=== PATIENT | female | born 1985 | race Caucasian/White ===

== ENCOUNTER 2017-06-29 18:01 | Emergency (ER) | payer OTHER, SELFPAY ==
[2017-06-29 18:02] VITALS: BP 125/84; PULSE 88; RESP 20; TEMP 36.4; O2SAT 98; BMI 37.5
[2017-06-29 18:06] VITALS: BP 125/84; PULSE 88; RESP 20; TEMP 36.4; O2SAT 98; BMI 37.5
== END 2017-06-29 20:58 | disposition left against medical advice (07) ==
LOC: ED 18:02
PROVIDERS: PCP Family Medicine
DX: S61.211A Laceration without foreign body of left index finger without damage to nail, initial encounter (principal)
CPT/HCPCS: 99281; 99282

== ENCOUNTER → 2017-07-18 08:34 | Outpatient (CLI) | payer OTHER, SELFPAY ==
--- NOTE | 2017-07-18 | DI.CT.S_ITS ---
PROCEDURE: CT LE RT WO CON INDICATIONS: right foot arthritis/pain TECHNIQUE: Noncontrast 1-1.5 mm axial sections acquired from above the tibiotalar joint to the bottom of the calcaneus, with coronal and sagittal reformats. COMPARISON: [facility] [place], CR, XR FOOT 3+ VIEWS RIGHT, 05/15/2017, 9:43. [facility], CR, KNEE 3V LEFT, 04/13/2017, 20:10. [facility] [place], CR, XR FOOT 3+ VIEWS RIGHT, 03/13/2017, 13:23. [facility] [place], CR, XR FOOT 3+ VIEWS RIGHT, 02/07/2017, 13:49. [facility] [place], CR, XR FOOT 3 VIEWS WEIGHT BEARING RIGHT, 12/27/2016, 9:40. [facility], CR, XR FOOT 1 OR 2 VIEWS LEFT, 09/23/2016, 11:05. [facility], CR, XR FOOT 1 OR 2 VIEWS RIGHT, 11/25/2016, 8:10. [facility], CR, XR FOOT 1 OR 2 VIEWS BILATERAL, 11/04/2016, 11:00. [facility] [place], CR, XR FOOT 3+ VIEWS RIGHT, 07/11/2017, 11:18. FINDINGS: Image quality: Excellent. Bones: No acute trauma found. There is a small degree of tibiotalar joint space thinning, best seen on the lateral reformatt imaging, and again noted is a slight degree of degenerative thinning at the calcaneocuboid and talonavicular articulations. A small focus of residual fixation device from prior right medial midfoot fusion procedure remains after removal of the fixation plate and screws from that area at some point subsequent to the plain film imaging of the right foot obtained 03/13/17. Soft tissues: No inflammatory change is present. No underlying infection is suspected. IMPRESSION: A prior fixation plates nd screws removal from the first tarsal-metatarsal and second tarsal-metatarsal region of the midfoot, with one the previously identified residual screw fragment remaining in the dorsal two thirds of the base of the second metatarsal. Only a small degree of degenerative osteoarthritic change is present, over the midfoot and hindfoot. No acute trauma is seen and no evidence for underlying infection involving the soft tissue or osseous structures is found. Dictated by: Charlie Everett M.D. on 07/18/2017 at 11:16 Approved by: Charlie Everett M.D. on 07/18/2017 at 11:24
== END ==
PROVIDERS: PCP Family Medicine; Visit Provider Orthopaedic Surgery Foot and Ankle Surgery
DX: M19.071 Primary osteoarthritis, right ankle and foot (principal); M79.671 Pain in right foot
CPT/HCPCS: 73700

== ENCOUNTER 2017-11-21 08:42 | Day surgery (SDC) | payer OTHER, SELFPAY ==
[2017-11-17 09:32] VITALS: BMI 39.9
[2017-11-21] VITALS (8 sets, daily range): BP systolic 118–152; BP diastolic 68–95; PULSE 81–112; RESP 10–25; TEMP 36.2–36.8; O2SAT 92–98; BMI 40.3
[2017-11-21] MEDS: LACTATED RINGERS 1,000 ML 42 ML IV ×2 (09:12→14:13)
--- NOTE | 2017-11-21 11:41 | PM.PREOP ---
Pre-operative Note Interval Note Pre-op Check: Yes History & Physical Reviewed by Physician Changes: No H&P completed within 30 days and has changed as indicated here:: no changes
[2017-11-21] MEDS: APREPITANT 40 MG CAPSULE PO (11:59)
[2017-11-21] MEDS: SCOPOLAMINE 1 PATCH TOP (11:59)
[2017-11-21] MEDS: CEFAZOLIN 2 GM/100 ML FROZ.PIGGY IV (12:15)
--- NOTE | 2017-11-21 12:46 | SUR.OPER ---
Prone on padded OR bed, head in foam head support, gel chest rolls, gel pad under knees, blankets under lower legs, toes free of pressure, arms secured on padded arm boards at <90 degrees abduction. Safety belt at back and thigh.
[2017-11-21] MEDS: BUPIVACAINE 0.25% (PF) VIAL 30 ML INJ (13:06)
[2017-11-21] MEDS: MIDAZOLAM 2 MG/2 ML VIAL 1 MG IV ×2 (13:45→14:02)
--- NOTE | 2017-11-21 14:01 | P.OP_ITS ---
Operative Date/Time/Diagnoses Date of procedure: 11/21/17 Time of procedure: 12:45 Pre-op diagnosis: 1. Gastroc equinus of the right lower extremity ICD 10 M21.6X1 2. Morbid Obesity BMI 41 3. Dislocation of the tarsometatarsal joint, right foot ICD 10 S93.32D Post-op diagnosis: same Procedure & Clinicians Procedure: 1. Gastrocnemius recession, Annmarie procedure, right lower extremity CPT code 90943 Same procedure as scheduled: Yes Indications: The patient is a 32 year old female that had a low energy Lisfranc fracture of her right foot on 09/22/2016 she had the initial 6 week treatment of nonweightbearing but failed conservative treatment [place] surgeon. He had a staged removal of hardware 5 months later and has been maintained in a shoe with an orthotic. She also has gastroc equinus and has undergone extensive >9 mo conservative treatment with calf and Achilles stretching as well as formal physical therapy. She has been working very hard in physical therapy on her gastroc tightness but has not made progress she continues to have pain any time she gets up starts walking and feels tightness in her calf and foot pain. Recent CT scan of her right foot showed minimal degenerative changes. She has been indicated for a elective gastrocnemius recession to address her gastroc equinus contracture and leg and foot pain. Surgeon: Yoanna Martinez Click Yes if Unassisted: Yes Anesthesia Type: General and Local Operative Notes Findings: Patient was evaluated under anesthesia in the operating room with the knee flexed and the knee extended. The patient had obvious gastroc contracture of her right lower extremity with approximately 5? of equinus with the knee extended and approximately 15? of dorsiflexion with the knee flexed. After isolation and transection of the gastrocnemius fascia the contracture was greatly improved with approximately 10-15 degrees of ankle dorsiflexion with knee extension and 2.5 cm of lengthening between the transverse ends of the gastroc fascia. Closure Type: primary Specimen(s): none sent Implants & Drains: None Applied: other (Splint) Estimated Blood Loss (mL): 0 Blood products transfused: none Tourniquet time (min): 13 Procedure in detail: Patient was seen and evaluated in the preoperative area. The site of surgery was marked and consent form confirmed and re-signed. Patient was determined appropriate to proceed with the scheduled procedure and final questions were answered. Patient was then brought to the operating room. General anesthesia was administered the patient was then moved onto the operative bed and positioned in the prone position with this well-padded. A padded thigh tourniquet was operative extremity. The right lower extremity was in a pre prepped with alcohol wipe the the standard sterile chlorhexidine prep was then completed. Patient was sterilely draped in the standard fashion. A formal time-out procedure was performed confirming the patient's side and site of surgery and administration of appropriate preoperative antibiotics. All were in agreement. The Esmarch was then utilized for exsanguination and the tourniquet elevated on the thigh to 300 mm of mercury and stayed there for 13 min. Right gastroc recession: Attention was directed to the medial aspect of the right leg. Ruler was used and approximately 14 cm proximal from the proximal aspect of the calcaneus was marked on the leg this was just distal to the muscle bulk of the calf. Approximately 3 cm small incision was marked out over the skin just medial to the midline. Scalpel was used to incise the skin and subcutaneous tissue. Scissor dissection was taken down to the level of the fascia which was then divided longitudinally with a 15 blade. Care was taken to protect the neurovascular structures. The paratenon was entered and blunt finger dissection was used to isolate the gastroc from the soleus. Gastroc fascia was then transected selectively the complete release medial to lateral. A plantaris muscle was also identified medially and this was transected at the same level. Gastroc release provided approximately 2.5 cm of lengthening resulting in a greater than 10? of ankle dorsiflexion markedly improving the contracture. I was very happy with this release and mobility. The tourniquet was released, hemostasis was then achieved and the incision was then irrigated with copious normal saline. The deep tissue was closed with 2 O Vicryl suture followed by subcutaneous closure with 4 0 Monocryl and skin closure with 3 O nylon. A sterile Xeroform dressing was placed as well as 4x4s Webril and Jed wrap in a posterior splint. The patient was then awoken from anesthesia. The patient tolerated the procedure well and there were no known complications from the procedure she was transferred to the PACU in good condition. All counts were correct. Complications: none Condition: stable Disposition: PACU Plan for aftercare: The patient will be partial weight-bearing or toe-touch weight-bearing with crutches in a posterior splint or boot. She will keep her dressing clean dry and intact until follow-up. 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 She will elevate above the heart level to limit swelling and pain.
--- NOTE | 2017-11-21 14:45 | SUR.PHASEII ---
dcd iv in phase 2. cath intact. site w/o reddness or swelling.
== END 2017-11-21 14:47 | disposition home or self-care (01) ==
PROVIDERS: PCP Family Medicine; Visit Provider Orthopaedic Surgery Foot and Ankle Surgery
PROC: (CPT 27687; principal; 2017-11-21 10:15)
DX: M21.6X1 Other acquired deformities of right foot (principal); S93.324D Dislocation of tarsometatarsal joint of right foot, subsequent encounter; E66.01 Morbid (severe) obesity due to excess calories; Z68.42 Body mass index [BMI] 45.0-49.9, adult
CPT/HCPCS: 27687; J0330; J0690; J1100; J2250; J2405; J2704; J3010; J8501

== ENCOUNTER → 2017-12-11 18:58 | Outpatient (CLI) | payer OTHER, SELFPAY ==
--- NOTE | 2017-12-11 | DI.MRI.S_ITS ---
PROCEDURE: MR LOWER LEG RT WO CON INDICATIONS: GASTROCENIMUS EQUINUS OF RIGHT LOWER EXTERMITY TECHNIQUE: Noncontrast coronal and sagittal T1 spin echo and STIR; axial T1 spin echo and T2 fast spin echo with fat saturation through the right lower leg. COMPARISON: None. FINDINGS: Image quality: Excellent. Bones: The visualized bone marrow demonstrates normal signal on all sequences. The overlying cortex appears intact. No fractures lines or intra-osseous lesions. Soft tissues: There is edema and fluid signal involving musculotendinous junction of distal gastrocnemius muscle suggestive of low-grade partial-thickness tear in this area. The mild edema involving the superficial portion of the lateral soleus muscle in this area is also noted suggestive of low-grade muscle strain/partial thickness tear. No other muscle or tendon signal abnormality. No significant muscle atrophy. No soft tissue masses are present. IMPRESSION: 1. Findings consistent with muscle strain/low-grade partial-thickness tear involving distal gastrocnemius muscle near musculotendinous junction. Low-grade strain and partial-thickness tear is also seen involving superficial and lateral portion of the adjacent soleus muscle. No full-thickness muscle or tendon rupture. 2. No marrow signal abnormality. Dictated by: Rigo Daigle M.D. on 12/12/2017 at 13:57 Approved by: Rigo Daigle M.D. on 12/12/2017 at 14:02
== END ==
PROVIDERS: PCP Family Medicine; Visit Provider Physician Assistant
DX: M21.6X9 Other acquired deformities of unspecified foot (principal)
CPT/HCPCS: 73718

== ENCOUNTER 2018-02-19 06:05 | Day surgery (SDC) | payer OTHER, SELFPAY ==
[2018-02-18 09:15] VITALS: BMI 41.0
[2018-02-19] VITALS (12 sets, daily range): BP systolic 100–132; BP diastolic 56–80; PULSE 81–110; RESP 14–92; TEMP 36.4–37.2; O2SAT 18–95; BMI 41.0
--- NOTE | 2018-02-19 | DI.RAD.S_ITS ---
PROCEDURE: XR FOOT RT MIN 3V INDICATIONS: LIS FRANC REPAIR TECHNIQUE: 3 views of the foot were acquired. COMPARISON: [facility] [place], CR, XR FOOT 3 VIEWS WEIGHT BEARING RIGHT, 02/12/2018, 8:41. FINDINGS: Bones: Expected bony alignment status post arthrodesis of the first and second tarsometatarsal joints with fixation plate and screws in expected positions. Soft tissues: No tibiotalar joint effusion. Achilles tendon appears normal. IMPRESSION: Expected alignment status post arthrodesis of the first and second tarsometatarsal joints. Dictated by: Kal Stephenson [facility] Interpreted: Rigo Daigle MD on 02/19/2018 at 11:34 Approved by: Rigo Daigle M.D. on 02/19/2018 at 17:39
--- NOTE | 2018-02-19 07:21 | PM.PREOP ---
Pre-operative Note Interval Note Pre-op Check: Yes History & Physical Reviewed by Physician and Yes Exam Performed Changes: No
--- NOTE | 2018-02-19 07:36 | P.OP_ITS ---
Operative Date/Time/Diagnoses Date of procedure: 02/19/18 Time of procedure: 08:15 Pre-op diagnosis: Dislocation tarsaometatarsal joint right foot ICD 10 S93.324 Chronic foot pain status post Lisfranc fracture dislocation Post-op diagnosis: same Procedure & Clinicians Procedure: 1. Arthrodesis mid foot, 1st and 2nd tarsometatarsal joints, right: Fusion tarsometatarsal joint 2 or more CPT code 53562 Modifier 79 and modifier 22 for complexity, altered surgical bed, revision procedure Same procedure as scheduled: Yes Indications: Patient is a 32-year-old female who had a history of a right low energy Lisfranc in August of 2016. The patient initially underwent 6 weeks of non operative treatment out of state and then underwent open reduction internal fixation by another physician in [place] in October of 2016. The patient had later staged hardware removal approximately 6 months postop. The patient had continued midfoot pain. She got temporary relief with steroid injections and had increased relief with a gastroc lengthening for her equinus contracture. But due to persistent midfoot pain despite extensive conservative management and orthotics supportive shoes injections and anti-inflammatories the patient has been indicated for midfoot fusion. We discussed the rationale for, risks of, prolonged recovery associated with surgery. The patient expressed extending of all issues including risks of infection, nerve damage, wound dehiscence, nonunion, malunion, symptomatic hardware, over correction or under correction of the deformity, implant complete relief of pain, inability to return to the patient's desired level of function, generalized dissatisfaction with the surgical procedure and outcome, DVT, PE, cardiac complications and . Informed consent was signed in the office. The patient understands the healing bones and soft tissues will take approximately 3 months for full recovery will require 6-9 months. The patient also understands the critical elevate the extremity for 4th the 1st 3 weeks after surgery to control swelling and pain. The patient was counseled and await will be allowed on the surgical leg for approximately 8-12 weeks until the patient is instructed that it is safe to initiate weight-bearing. Surgeon: Yoanna Martinez Click Yes if Unassisted: Yes Anesthesia Type: General Operative Notes Closure Type: primary Specimen(s): none sent Implants & Drains: Arthritis 3.5 Lapidus plate and screws 4.0 cannulated lag screw Arthrex 3.0 T-plate and screws 5 cc demineralized cortical fibers allograft bone Applied: other (splint) Estimated Blood Loss (mL): 15 Blood products transfused: none Tourniquet time (min): 116 Procedure in detail: Patient was seen in the preoperative area and her site of surgery was marked and informed consent confirmed. Patient was brought to the operating room by the anesthesia team placed supine on the operative table. A sciatic block for postop pain control was performed by the anesthesia team in the operating room. Following this the position was then placed supine general anesthesia was administered. All bony prominences were padded. There is a well -padded thigh tourniquet placed on the right lower extremity. Right lower extremities prepped and draped in the standard sterile fashion formal time-out performed seizure was performed confirming the patient's side and site of surgery and administration of appropriate preoperative antibiotics. All were in agreement. Implants were available in the room. An Esmarch bandage was utilized to exsanguinate the extremity and the tourniquet was raised on the thigh to 300 mm of mercury and stayed there for 116 min. Attention was turned to the right foot the patient's previous surgical incisions were a medial approach the 1st TMT and a dorsal approach centered over the lateral 2nd metatarsal. Both incisions were reopened. Careful dissection was taken down through the subcutaneous tissue down to the level of the bone over the dorsum of the foot. The neurovascular bundle was retracted medially and subperiosteal dissection was taken over the 2nd tarsometatarsal joint. There was copious scar tissue in this area in the soft tissues were quite scarred down and not easily mobile. With careful elevation the 2nd TMT joint was exposed K-wire distractor was placed the 2nd TMT joint was evaluated was found to have arthritic changes. Osteotomes were then utilized to remove the remaining cartilage down to the subchondral bone. This was then prepped further with the bur and 2 0 drill to get down to good bleeding cancellous bone surfaces. Attention was then turned to the 1st TMT joint. This was exposed through the pre-existing medial and incision. Again the subcutaneous tissues were very scarred in. Careful dissection was taken to avoid injury to the tibialis anterior insertion. Approximately 10% of this was elevated at the level of the TMT joint. The 1st TMT joint was exposed and the K- wire retractor was used again here. the osteotomes from the [employer] joint prep tray were used to remove the remaining cartilage down to subchondral bone. Again the pituitary rongeur was used to clear away the debris and a bur was used to remove the lateral prominence of the medial cuneiform. a 2.0 drill was used to finish the cancellous surface preparation. 5 cc of cortical fiber allograft was then placed into the 1st and 2nd TMT joints and the joints were provisionally pinned. Reduction was checked on the x -ray confirming satisfactory positioning. Next a lag screws placed across the 1st TMT joint this was done utilizing the 440 cannulated screw system and provided good fixation across the joint. Next a dorsomedial Lapidus plate from the Arthrex set was positioned along the 1st TMT joint. This was secured distally and proximally and placed in neutralization fashion. Attention was then returned to the 2nd metatarsal where a dorsal bridge, compression plate technique was utilized with the 3 0 T-plate which was secured proximally with locking screws. The nonlocking eccentric screw was placed into the compression hole distally for joint compression. The remaining locking screw was placed distally. The fixation was tested and was stable intraoperatively and then evaluated with final fluoroscopic images in the AP oblique and lateral views confirming appropriate reduction and hardware placement. The tourniquet was released and hemostasis achieved. The wound was irrigated and closed in a layered fashion with 2 Vicryl deep subcutaneous tissues were closed with 4 0 Monocryl in the skin was closed with 4 0 nylon and 3 O nylon. Sterile dressing was placed with Xeroform gauze Webril bulky Clifford dressing and a posterior splint. Patient was then awoken from anesthesia and taken to the PACU in good condition. All counts were correct. There no immediate complications to this procedure. Complications: none Condition: stable Disposition: PACU Plan for aftercare: Patient will be nonweightbearing she will elevate her lower extremity strictly above heart level for the next 2-3 weeks. She will follow up in clinic. She will maintain nonweightbearing for a minimum of 8 weeks. She will start taking aspirin 325 mg daily on postop day 1 for DVT prophylaxis.
[2018-02-19] MEDS: MIDAZOLAM 2 MG/2 ML VIAL IV (07:42)
[2018-02-19] MEDS: LACTATED RINGERS 1,000 ML 42 ML IV ×2 (08:05→10:19)
[2018-02-19] MEDS: CEFAZOLIN 2 GM/100 ML FROZ.PIGGY IV (08:10)
--- NOTE | 2018-02-19 08:32 | SUR.OPER ---
Supine on padded OR bed, head on pillow, arms secured on padded arm boards at <90 degrees abduction, legs uncrossed, right leg draped free, safety belt at thigh, tape over blanket over lower left leg
[2018-02-19] MEDS: BUPIVACAINE 0.5% (PF) VIAL 30 ML INJ (08:42)
--- NOTE | 2018-02-19 11:15 | SUR.PHASEI ---
Due to surgical dressing situation usual neurovascular assessment not completed.
[2018-02-19] MEDS: MEPERIDINE 25 MG/ML SYRINGE IV ×2 (11:30→11:37)
--- NOTE | 2018-02-19 14:15 | SUR.PHASEII ---
[place] at Pharmacy filled scripts.
== END 2018-02-19 13:10 | disposition home or self-care (01) ==
PROVIDERS: PCP Family Medicine; Visit Provider Orthopaedic Surgery Foot and Ankle Surgery
PROC: (CPT 28730; principal; 2018-02-19 07:45)
DX: S93.324A Dislocation of tarsometatarsal joint of right foot, initial encounter (principal); S86.111A Strain of other muscle(s) and tendon(s) of posterior muscle group at lower leg level, right leg, initial encounter; M21.6X1 Other acquired deformities of right foot; G89.18 Other acute postprocedural pain
CPT/HCPCS: 28730; 64415; 64445; 73630; 76001; J0360; J0690; J1100; J2175; J2250; J2405; J2704; J3010

== ENCOUNTER → 2018-05-07 08:59 | Outpatient (CLI) | payer OTHER, SELFPAY ==
--- NOTE | 2018-05-07 | DI.US.S_ITS ---
PROCEDURE: US PERIPH VENOUS LOW EXTREM RT INDICATIONS: RIGHT LEG PAIN AND SWELLING TECHNIQUE: Real-time imaging, as well as color and pulse Doppler interrogation, were performed of the lower extremity deep veins from the inguinal ligament to the popliteal fossa. COMPARISON: None. FINDINGS: The common femoral, femoral and popliteal veins are normally compressible, and free of intraluminal thrombus. Color and pulse Doppler demonstrate normal phasic intraluminal flow. There is normal augmentation response to distal compression maneuver. IMPRESSION: No deep venous thrombosis. Dictated by: Dustin Arias M.D. on 05/07/2018 at 10:04 Approved by: Dustin Arias M.D. on 05/07/2018 at 10:09
== END ==
PROVIDERS: PCP Family Medicine; Visit Provider Orthopaedic Surgery Foot and Ankle Surgery
DX: M79.604 Pain in right leg (principal)
CPT/HCPCS: 93971

== ENCOUNTER 2018-06-02 20:48 | Emergency (ER) | payer OTHER, SELFPAY ==
[2018-06-02 21:18] VITALS: BP 151/90; PULSE 85; RESP 20; TEMP 36.9; O2SAT 99; BMI 37.5
--- NOTE | 2018-06-02 21:21 | DI.RAD.S_ITS ---
PROCEDURE: XR HAND LT MIN 3V INDICATIONS: fall TECHNIQUE: 3 views of the hand(s) acquired. COMPARISON: None. FINDINGS: Bones: No fractures or dislocations. Carpal bones are normally aligned. No suspicious bony lesions. Soft tissues: No suspicious soft tissue calcifications. IMPRESSION: No fracture. No osseous lesion. If there are persistent symptoms or clinical suspicion for pathology, then repeat radiographs or advanced imaging (CT, MRI or bone scan) should be considered for further evaluation. Dictated by: Katerina Vance MD, PhD on 06/02/2018 at 21:58 Approved by: Katerina Vance MD, PhD on 06/02/2018 at 21:59
[2018-06-02 23:49] VITALS: BP 120/96; PULSE 90; RESP 16; O2SAT 98
--- NOTE | 2018-06-03 07:15 | ED_ITS ---
HPI - Extremity Injury (Upper) General Chief Complaint: Extremity Injury, Upper Stated Complaint: LT HAND INJURY Time Seen by Provider: 06/02/18 22:27 Source: patient Mode of arrival: ambulatory Limitations: no limitations History of Present Illness HPI narrative: 32-year-old nonsmoking female with history of hypertension and asthma presents with left hand pain. She was walking and tripped and fell on her outstretched left hand. She denies tenderness over the dorsum of her left thumb. She has full range of motion and denies any numbness or tingling. She denies any pain in her forearm, elbow or shoulder MD complaint: injury to: left Onset (ago): minute(s) Other Extremity Injury: Left: fingers Other injuries: none Handedness: right Place: home Severity: mild Severity scale (1-10): 2 Relieving factors: rest Exacerbating factors: movement of extremity Context: direct blow Related Data Home Medications Medication Instructions Recorded Confirmed atenolol 50 mg PO BID #0 03/24/17 02/18/18 sertraline [Zoloft] 100 mg PO DIRECTED #0 03/24/17 02/19/18 gabapentin 300 mg PO BEDTIME 11/14/17 02/18/18 acetaminophen [Tylenol Extra 1,000 mg PO Q6H PRN 11/21/17 11/21/17 Strength] albuterol sulfate 2 puff INHALATION Q4-6H PRN 11/21/17 11/21/17 ibuprofen 800 mg PO TID PRN 02/18/18 02/18/18 Previous Rx's Medication Instructions Recorded diazepam [Valium] 5 mg PO Q8H PRN #10 tab 11/21/17 ondansetron [Zofran ODT] 4 mg PO Q8H PRN #5 tab 11/21/17 oxycodone 5 mg PO Q4-6H PRN #10 tab 11/21/17 diazepam [Valium] 5 mg PO BID-TID PRN #20 tab 02/19/18 ondansetron HCl [Zofran] 4 mg PO BID-TID PRN #10 tab 02/19/18 oxycodone-acetaminophen [Percocet] 2 tab PO Q4-6H PRN #42 tab 02/19/18 Allergies Allergy/AdvReac Type Severity Reaction Status Date / Time adhesive tape Allergy Severe Break out Verified 02/19/18 06:48 really bad erythromycin base Allergy Intermediate ITCHY/HIVES Verified 02/19/18 06:48 [From ERYTHROCIN] oxycodone [From PERCOCET] Allergy Intermediate Itching, Verified 02/19/18 06:48 vomiting hydrocodone [HYDROCODONE] AdvReac Severe VOMITING Verified 02/19/18 06:48 oseltamivir [From TAMIFLU] AdvReac Intermediate DELUSIONS Verified 02/19/18 06:48 Review of Systems Constitutional Denies chills, Denies fever(s), Denies lethargy and Denies weakness Eyes Denies change in vision, Denies eye discharge, Denies irritation and Denies loss of vision ENT Ears, Nose, Mouth, and Throat: Denies change in voice, Denies neck pain and Denies sore throat Cardiovascular Denies chest pain, Denies irregular heart rhythm, Denies lightheadedness, Denies palpitations, Denies dyspnea, Denies dyspnea on exertion and Denies orthopnea Respiratory Denies cough, Denies dyspnea, Denies dyspnea on exertion and Denies wheezing Gastrointestinal Gastrointestinal: Denies abdominal pain, Denies change in bowel habits, Denies diarrhea, Denies nausea and Denies vomiting Genitourinary Denies hematuria, Denies flank pain, Denies urinary incontinence and Denies urinary urgency Musculoskeletal Denies neck pain Integumentary/Breasts Denies pruritus, Denies erythema, Denies rash and Denies wounds Neurologic Denies confusion, Denies loss of vision and Denies weakness Psychiatric Denies anxiety, Denies confusion, Denies depression, Denies homicidal ideation and Denies suicidal ideation Endocrine Denies palpitations Hematologic/Lymphatic Denies easy bruising Allergic/Immunologic Denies wheezing [facility] Medical History (Updated 06/02/18 @ 23:37 by Robe Palma DO) Asthma (Acute) Closed nondisplaced fracture of second metatarsal bone of right foot with routine healing (Acute) Depression (Acute) Dermatitis (Acute) Dislocation of tarsometatarsal joint of foot (Acute) Gastrocnemius equinus of right lower extremity (Acute) History of migraine headaches (Acute) History of pancreatitis (Acute) History of depression (Acute) Kidney stones (Acute) 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) Obesity (Acute) Surgical History (Updated 02/18/18 @ 09:24 by Samantha Desai RN) H/O sinus surgery (Acute) H/O: (Acute) History of ERCP (Acute) History of cholecystectomy (Acute) History of open reduction and internal fixation (ORIF) procedure (Acute) Social History household members: spouse and children Smoking Status: Never smoker alcohol intake: current Social History household members: spouse and children Smoking Status: Never smoker alcohol intake: current Exam Narrative Exam Narrative: GEN: AOx3 and in mild distress EYES: Pupils are equal, round, and reactive to light and accommodation. Extraoccular muscles are intact bilaterally. There is no subconjunctival hemorrhage or exudate. CHEST: Lungs are clear to auscultation bilaterally and free of wheezes, rales, or rhonchi. Heart rate is regular rhythm, there are no murmurs, clicks, rubs, or gallops. There is no chest wall tenderness. ABD: Abdomen is soft and nontender. There is no guarding or rebound. Bowel sounds are normal in all 4 quadrants. There is no mass or organomegaly. EXT: Full but painful range of motion of the left hand there is some bruising on the volar surface of the left thumb but full range of motion. Minimal tenderness in the anatomic snuffbox and no change in pain with axial loading however patient was placed in thumb spica nonetheless SKIN: Warm, pink, and dry. No erythema or rash Initial Vital Signs Initial Vital Signs: Vital Signs Temperature 98.5 F 06/02/18 21:18 Pulse Rate 85 06/02/18 21:18 Respiratory Rate 20 06/02/18 21:18 Blood Pressure 151/90 H 06/02/18 21:18 Pulse Oximetry 99 06/02/18 21:18 Procedures Orthopedic Splinting/Casting Injury #1: Side: left Upper Extremity Injury Location: hand Upper Extremity Immobilizer: thumb spica Post splinting neuro exam: intact Post splinting vascular exam: intact Placed by: Nursing Course Vital Signs - 8 hr 06/02/18 23:49 Pulse Rate 90 Respiratory Rate 16 Blood Pressure 120/96 H Pulse Oximetry 98 Discharge Plan Departure Patient Disposition: Home Clinical Impression: Contusion of left thumb Qualifiers: Encounter type: initial encounter Damage to nail status: without damage Qualified Code(s): S60.012A - Contusion of left thumb without damage to nail, initial encounter Discharge Date/Time: 06/02/18 23:45 Interventions: ED Discharge Assessment Last Done: 06/02/18 23:49 Instructions: DI for Contusion Activity Restrictions/Additional Instructions: *You have been diagnosed with [ left thumb contusion] *What to do: *Take medications as directed *Follow up with your primary care provider in 2-3 days, call for an appointment. Let them know you were seen in the Emergency Department and that we ask that you be seen in follow up *Return to ER if you should have any new, worsening or concerning symptoms Prescriptions: No Action sertraline [Zoloft] 100 MG tablet 100 mg PO DIRECTED Qty: 0 RF: 0 atenolol 50 MG tablet 50 mg PO BID Qty: 0 RF: 0 ibuprofen 200 mg Tablet 800 mg PO TID PRN (Reason: pain) RF: 0 ondansetron HCl [Zofran] 4 mg tablet 4 mg PO BID-TID PRN (Reason: nausea and vomiting) Qty: 10 RF: 1 oxycodone-acetaminophen [Percocet] 5-325 mg tablet 2 tab PO Q4-6H PRN (Reason: pain) Qty: 42 RF: 0 diazepam [Valium] 5 mg tablet 5 mg PO BID-TID PRN (Reason: spasms) Qty: 20 RF: 1 gabapentin 300 mg Capsule 300 mg PO BEDTIME RF: 0 acetaminophen [Tylenol Extra Strength] 500 mg Tablet 1,000 mg PO Q6H PRN (Reason: Pain (Scale Score 1-3)) RF: 0 albuterol sulfate 90 mcg/actuation Hfa Aerosol Inhaler 2 puff INHALATION Q4-6H PRN (Reason: Dyspnea) RF: 0 diazepam [Valium] 5 mg tablet 5 mg PO Q8H PRN (Reason: spasms) Qty: 10 RF: 1 ondansetron [Zofran ODT] 4 mg tablet,disintegrating 4 mg PO Q8H PRN (Reason: nausea and vomiting) Qty: 5 RF: 1 oxycodone 5 mg tablet 5 mg PO Q4-6H PRN (Reason: pain) Qty: 10 RF: 0 Referrals: Chu Kaplan DO [Primary Care Provider] -
== END 2018-06-02 23:45 | disposition home or self-care (01) ==
PROVIDERS: Emergency Provider Emergency Medicine; Family Provider Family Medicine; PCP Family Medicine
DX: S60.012A Contusion of left thumb without damage to nail, initial encounter (principal); W19.XXXA Unspecified fall, initial encounter
CPT/HCPCS: 29280; 73130; 99282; 99283

== ENCOUNTER → 2018-08-21 09:32 | Outpatient (CLI) | payer OTHER, SELFPAY ==
--- NOTE | 2018-08-21 | DI.CT.S_ITS ---
PROCEDURE: CT SINUS SCREEN WO CON INDICATIONS: fracture of 2nd metatarsal bone chronic sinusitis TECHNIQUE: Noncontrast 3.0 mm axial images acquired from the frontal sinuses to the mid-sella, with coronal and sagittal reformats. For radiation dose reduction, the following was used: automated exposure control, adjustment of mA and/or kV according to patient size. COMPARISON: None. FINDINGS: Image quality: Excellent. Maxillary Sinuses: No bony remodeling or destruction. Sinuses are clear except for a moderate sized mucous retention cyst at the anterolateral right maxillary sinus measuring up to 2.1 cm in maximal dimension. Ethmoid Air Cells: No bony remodeling or destruction. Sinuses are clear. Sphenoid Sinuses: No bony remodeling or destruction. Sinuses are clear except for slight left lateral mucosal thickening at the posterior sphenoid sinus, without air fluid level. Frontal Sinuses: No bony remodeling or destruction. Sinuses are clear. Ostiomeatal Complexes: Ostiomeatal complexes are patent. No Gigi cells. Miscellaneous: Visualized intra-orbital contents are normal. No dexter bullosa or paradoxical turbinate curvature. No nasal septal deviation. IMPRESSION: No sign of active sinusitis. Mucous retention cyst right maxillary sinus is not obstructive, minimal mucosal thickening appears chronic and possibly also a mucous retention cyst at the left margin of the sphenoid sinus. Dictated by: Charlie Everett M.D. on 08/21/2018 at 10:10 Approved by: Charlie Everett M.D. on 08/21/2018 at 10:12
--- NOTE | 2018-08-21 09:55 | DI.CT.S_ITS ---
PROCEDURE: CT LE RT WO CON INDICATIONS: fracture of 2nd metatarsal bone chronic sinusitis TECHNIQUE: Noncontrast 1-1.5 mm axial sections acquired from above the tibiotalar joint to the bottom of the calcaneus, with coronal and sagittal reformats. COMPARISON: [facility], CT, CT LE RT WO CON, 07/18/2017, 8:44. FINDINGS: Image quality: Excellent. Bones: Again noted is prior fusion of first TMT joint, second TMT joint, and fusion of medial and middle cuneiforms. Long fixation screw is seen traversing first TMT joint and naviculocuneiform joint. No gross hardware loosening or failure is identified. There is near complete bony union at first and second TMT joints. Pseudoarthrosis between first and second metatarsal bases are noted no bony union is seen at naviculocuneiform joint. No acute fracture or dislocation. No suspicious intraosseous lesion. Small ill-defined calcifications and cortical irregularity involving the distal and plantar aspect of lateral cuneiform is seen consistent with old injury in this area. Soft tissues: Plantar aponeurosis is intact. Extensor, flexor and peroneus tendons are grossly intact. Ankle mortise is congruent. IMPRESSION: 1. Prior fusion of first TMT joint, second TMT joint and medial and middle cuneiforms. Near-complete bony union at first and second TMT joints are seen. No significant bony union is seen at the articulation between the medial and middle cuneiforms. 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 Suggestion of old fracture involving plantar and distal portion of lateral cuneiform with well-corticated small bony fragments. No acute fracture or dislocation. 2. No gross soft tissue abnormality is seen in right foot. Dictated by: Rigo Daigle M.D. on 08/21/2018 at 10:25 Approved by: Rigo Daigle M.D. on 08/21/2018 at 12:51
== END ==
PROVIDERS: Family Provider Family Medicine; PCP Family Medicine; Visit Provider Otolaryngology
DX: S92.324D Nondisplaced fracture of second metatarsal bone, right foot, subsequent encounter for fracture with routine healing (principal); J34.89 Other specified disorders of nose and nasal sinuses; J32.8 Other chronic sinusitis; M27.40 Unspecified cyst of jaw
CPT/HCPCS: 70486; 73700

== ENCOUNTER → 2018-08-25 19:51 | Outpatient (CLI) | payer OTHER, SELFPAY | PROVIDERS: Family Provider Family Medicine; PCP Family Medicine; Visit Provider Physician Assistant | DX: L97.519 Non-pressure chronic ulcer of other part of right foot with unspecified severity (principal) | CPT/HCPCS: 87070; 87075; 87077; 87147; 87186; 87205 ==

== ENCOUNTER 2018-08-30 16:28 | Emergency (ER) | payer OTHER, SELFPAY ==
[2018-08-30 16:47] VITALS: BP 133/84; PULSE 98; RESP 16; O2SAT 99; BMI 36.8
--- NOTE | 2018-08-30 18:50 | ED.LOWEXIN ---
HPI - Extremity Injury (Lower) General Chief Complaint: Extremity Injury, Lower Stated Complaint: states staph infection in Right foot 2nd toe Time Seen by Provider: 08/30/18 18:09 Source: patient Mode of arrival: ambulatory Limitations: no limitations History of Present Illness HPI Narrative: Patient is a 33-year-old female who was seen in the walk-in clinic several days ago after sustaining an injury to her 2nd toe on the right foot. Patient does have some neuropathy in this foot secondary to a prior injury. She was placed on Keflex. There was a wound culture obtained. She returns today because she has more pain in that foot is also having some chills. Was told that if these develop she should come to the emergency department for further evaluation. She states she is still continuing to take her antibiotics and has several days left on this. Related Data Home Medications Medication Instructions Recorded Confirmed atenolol 50 mg PO BID #0 03/24/17 08/25/18 sertraline [Zoloft] 100 mg PO DIRECTED #0 03/24/17 08/25/18 gabapentin 300 mg PO BEDTIME 11/14/17 08/25/18 acetaminophen [Tylenol Extra 1,000 mg PO Q6H PRN 11/21/17 08/25/18 Strength] albuterol sulfate 2 puff INHALATION Q4-6H PRN 11/21/17 08/25/18 ibuprofen 800 mg PO TID PRN 02/18/18 08/25/18 Previous Rx's Medication Instructions Recorded diazepam [Valium] 5 mg PO Q8H PRN #10 tab 11/21/17 ondansetron [Zofran ODT] 4 mg PO Q8H PRN #5 tab 11/21/17 oxycodone 5 mg PO Q4-6H PRN #10 tab 11/21/17 diazepam [Valium] 5 mg PO BID-TID PRN #20 tab 02/19/18 ondansetron HCl [Zofran] 4 mg PO BID-TID PRN #10 tab 02/19/18 oxycodone-acetaminophen [Percocet] 2 tab PO Q4-6H PRN #42 tab 02/19/18 cephalexin 500 mg capsule 500 mg PO BID 10 Days #20 cap 08/25/18 Allergies Allergy/AdvReac Type Severity Reaction Status Date / Time adhesive tape Allergy Severe Break out Verified 08/30/18 16:47 really bad erythromycin base Allergy Intermediate ITCHY/HIVES Verified 08/30/18 16:47 [From ERYTHROCIN] oxycodone [From PERCOCET] Allergy Intermediate Itching, Verified 08/30/18 16:47 vomiting hydrocodone [HYDROCODONE] AdvReac Severe VOMITING Verified 08/30/18 16:47 oseltamivir [From TAMIFLU] AdvReac Intermediate DELUSIONS Verified 08/30/18 16:47 Review of Systems Constitutional Reports chills and Reports fever(s) Cardiovascular Denies dyspnea Respiratory Denies dyspnea Musculoskeletal Denies tingling Integumentary/Breasts Denies rash and Reports sores (Right 2nd toe) Neurologic Reports sensory deficit (Right foot) and Denies tingling Hematologic/Lymphatic Denies easy bleeding and Denies easy bruising [facility] Medical History Asthma (Acute) Closed nondisplaced fracture of second metatarsal bone of right foot with routine healing (Acute) Depression (Acute) Dermatitis (Acute) Dislocation of tarsometatarsal joint of foot (Acute) Gastrocnemius equinus of right lower extremity (Acute) History of migraine headaches (Acute) History of pancreatitis (Acute) History of depression (Acute) Kidney stones (Acute) 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) Obesity (Acute) Surgical History (Updated 02/18/18 @ 09:24 by Samantha Desai RN) H/O sinus surgery (Acute) H/O: (Acute) History of ERCP (Acute) History of cholecystectomy (Acute) History of open reduction and internal fixation (ORIF) procedure (Acute) Social History household members: spouse and children Smoking Status: Never smoker alcohol intake: current Social History household members: spouse and children Smoking Status: Never smoker alcohol intake: current Exam Initial Vital Signs Initial Vital Signs: Vital Signs Pulse Rate 98 H 08/30/18 16:47 Respiratory Rate 16 08/30/18 16:47 Blood Pressure 133/84 08/30/18 16:47 Pulse Oximetry 99 08/30/18 16:47 Const General: cooperative, healthy appearing, comfortable, well developed and well groomed Orientation: alert, awake and oriented x3 Resp Effort & Inspection: normal respiratory effort Cardio Rate: regular rate Pulses: dorsalis pedis present on the right Skin Other: Very small healing skin ulcer on the pad of the 2nd toe of the right foot. No surrounding erythema. Neuro General: alert, awake and oriented x3 Cognition: normal cognition Speech: speech normal Gait: normal gait Extrem Other: Well-healed surgical scars on the dorsum of the right foot. Course Vital Signs - 8 hr 08/30/18 16:47 Pulse Rate 98 H Respiratory Rate 16 Blood Pressure 133/84 Pulse Oximetry 99 MDM - Extremity Injury (Lower) MDM Narrative Medical decision making narrative: Reviewed patient's culture from the other day shows a pansensitive Staph aureus. She has no redness or cellulitis around the area of her right toe. Low suspicion for worsening infection. She does have neuropathy in this foot. Informed her that she needed to contact her foot and ankle specialist she already has a relationship with and also her primary provider for follow-up. Will not change any antibiotics today. She was given return precautions. Informed to continue to take her antibiotics. She expressed understanding and agreement with plan. Discharge Plan Departure Patient Disposition: Home Clinical Impression: Infection of toe Discharge Date/Time: 08/30/18 19:05 Interventions: ED Discharge Assessment Last Done: 08/30/18 19:05 Instructions: How to Prevent Pressure Ulcers Activity Restrictions/Additional Instructions: continue your antibiotics that you are currently on. tomorrow contact your ortho provider and your primary care provider to establish a follow up appointment. Return to the ER for any new or worsening symptoms. Prescriptions: No Action cephalexin 500 mg capsule 500 mg PO BID 10 Days Qty: 20 RF: 0 sertraline [Zoloft] 100 MG tablet 100 mg PO DIRECTED Qty: 0 RF: 0 atenolol 50 MG tablet 50 mg PO BID Qty: 0 RF: 0 ibuprofen 200 mg Tablet 800 mg PO TID PRN (Reason: pain) RF: 0 ondansetron HCl [Zofran] 4 mg tablet 4 mg PO BID-TID PRN (Reason: nausea and vomiting) Qty: 10 RF: 1 oxycodone-acetaminophen [Percocet] 5-325 mg tablet 2 tab PO Q4-6H PRN (Reason: pain) Qty: 42 RF: 0 diazepam [Valium] 5 mg tablet 5 mg PO BID-TID PRN (Reason: spasms) Qty: 20 RF: 1 gabapentin 300 mg Capsule 300 mg PO BEDTIME RF: 0 acetaminophen [Tylenol Extra Strength] 500 mg Tablet 1,000 mg PO Q6H PRN (Reason: Pain (Scale Score 1-3)) RF: 0 albuterol sulfate 90 mcg/actuation Hfa Aerosol Inhaler 2 puff INHALATION Q4-6H PRN (Reason: Dyspnea) RF: 0 diazepam [Valium] 5 mg tablet 5 mg PO Q8H PRN (Reason: spasms) Qty: 10 RF: 1 ondansetron [Zofran ODT] 4 mg tablet,disintegrating 4 mg PO Q8H PRN (Reason: nausea and vomiting) Qty: 5 RF: 1 oxycodone 5 mg tablet 5 mg PO Q4-6H PRN (Reason: pain) Qty: 10 RF: 0 Referrals: Chu Kaplan DO [Primary Care Provider] -
== END 2018-08-30 19:05 | disposition home or self-care (01) ==
PROVIDERS: Emergency Provider Emergency Medicine; PCP Family Medicine
DX: L08.9 Local infection of the skin and subcutaneous tissue, unspecified (principal)
CPT/HCPCS: 99282

== ENCOUNTER → 2019-01-07 08:45 | Outpatient (CLI) | payer OTHER, SELFPAY ==
--- NOTE | 2019-01-07 | DI.US.S_ITS ---
PROCEDURE: US PERIP VENOUS LOW EXTREM RT INDICATIONS: PAIN IN RIGHT LEG TECHNIQUE: Real-time imaging, as well as color and pulse Doppler interrogation, were performed of the lower extremity deep veins from the inguinal ligament to the popliteal fossa. COMPARISON: [facility], , [facility] VENOUS LOW EXTREM RT, 05/07/2018, 9:11. FINDINGS: The common femoral, femoral and popliteal veins are normally compressible, and free of intraluminal thrombus. Color and pulse Doppler demonstrate normal phasic intraluminal flow. There is normal augmentation response to distal compression maneuver. IMPRESSION: No deep venous thrombosis identified within the right lower extremity. Dictated by: Kal Stephenson [facility] Interpreted: Michael Atkins MD on 01/07/2019 at 11:09 Approved by: Michael Atkins M.D. on 01/07/2019 at 13:12
== END ==
PROVIDERS: PCP Family Medicine; Visit Provider Orthopaedic Surgery Foot and Ankle Surgery
DX: M79.604 Pain in right leg (principal)
CPT/HCPCS: 93971

== ENCOUNTER 2019-02-12 13:08 | Emergency (ER) | payer OTHER, SELFPAY ==
[2019-02-12 13:14] VITALS: BP 131/75; PULSE 84; RESP 18; TEMP 36.7; O2SAT 98; BMI 37.5
[2019-02-12 14:45] VITALS: BP 136/94; PULSE 72; RESP 16; O2SAT 96
--- NOTE | 2019-02-12 15:08 | ED_ITS ---
HPI - Headache <RYAN Ortega - Last Filed: 02/12/19 20:54> General Chief Complaint: Headache Stated Complaint: migrain x 5 days, vomiting Time Seen by Provider: 02/12/19 14:49 Source: patient Mode of arrival: Ambulatory Limitations: no limitations History of Present Illness HPI Narrative: This is a 33-year-old female, nonsmoker, who presents to ED with family with chief complaint of migraine headaches for 5-6 days. Patient has a history of migraine headaches and takes preventive medication atenolol and as needed Maxalt and Fioricet. Patient reports this headache is in similar character but more severe and lasting longer than usual. Patient usually does not have a migraine headache greater than 72 hours. Patient states she had used all her medications in addition to Tylenol and Motrin and her friends Imitrex. Patient reports there is no improvement in headaches and also reports unable to tolerate fluids last 12 hours due to nausea and vomiting with photophobia. P atient denies fever, unusual rashes, nuchal rigidity. Patient reports history of akathisia from using Compazine in the past. Related Data Home Medications Medication Instructions Recorded Confirmed atenolol 50 mg PO QPM #0 03/24/17 02/12/19 sertraline [Zoloft] 200 mg PO QPM #0 03/24/17 02/12/19 gabapentin 300 - 600 mg PO BEDTIME 11/14/17 02/12/19 acetaminophen [Tylenol Extra 1,000 mg PO Q6H PRN 11/21/17 02/12/19 Strength] albuterol sulfate 2 puff INHALATION Q4-6H PRN 11/21/17 02/12/19 ibuprofen 800 mg PO TID PRN 02/18/18 02/12/19 budesonide 0.5 mg INHALATION QPM 02/12/19 02/12/19 bupropion HCl 300 mg PO QAM 02/12/19 02/12/19 metformin 500 mg PO BID 02/12/19 02/12/19 rizatriptan [Maxalt-SCRAP METAL BURNER] 10 mg TRANSLINGUAL PRN PRN 02/12/19 02/12/19 tizanidine 4 mg PO TID 02/12/19 02/12/19 Previous Rx's Medication Instructions Recorded diazepam [Valium] 5 mg PO Q8H PRN #10 tab 11/21/17 rabidcgzml-iyjcjhdcewedz-aoqs 1 tab PO Q6H PRN #10 tab 02/12/19 hkxtmxybbw-kmhojle-abzawlna 1 cap PO Q6H PRN #10 cap 02/12/19 [Fiorinal] Allergies Allergy/AdvReac Type Severity Reaction Status Date / Time adhesive tape Allergy Severe Break out Verified 02/12/19 13:17 really bad erythromycin base Allergy Intermediate ITCHY/HIVES Verified 02/12/19 13:17 [From ERYTHROCIN] oxycodone [From PERCOCET] Allergy Intermediate Itching, Verified 02/12/19 13:17 vomiting prochlorperazine Allergy Intermediate ITCHING Verified 02/12/19 13:17 [From Compazine] hydrocodone [HYDROCODONE] AdvReac Severe VOMITING Verified 02/12/19 13:17 oseltamivir [From TAMIFLU] AdvReac Intermediate DELUSIONS Verified 02/12/19 13:17 Review of Systems <RYAN Ortega - Last Filed: 02/12/19 20:54> Review of Systems Narrative: General: Denies fever, chills, fatigue, malaise, sweats. HEENT: Denies sinus pain, ear pain, sore throat, difficulty swallowing, dizziness. Reports photophobia. Respiratory: Denies dyspnea, cough, wheezing, hemoptysis, sputum. Cardiovascular: Denies chest pain, palpitations, orthopnea, edema. Gastrointestinal: Reports nausea and vomiting. Denies abdominal pain, diarrhea, constipation, melena. : Denies dysuria, frequency, incontinence, hematuria, urinary retention. Musculoskeletal: Denies weakness, joint pain or bony pain. Skin: Denies rash, skin lesions, or other. Neurologic: Reports migraine headache for 5-6 days and generalized weakness. Denies numbness, change in speech, confusion, seizures, incoordination. Psychiatric: No concerning psychosocial issues. 12-point review of systems is negative except for those stated above. 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 Well developed, well nourished. Head: normocephalic, atraumatic, no scalp lesions, non-tender. ENT: Bilateral auditory canals and tympanic membranes clear. Hearing grossly intact. Nose without bleeding, purulent discharge, septal hematoma or deviation. Turbinate without erythema or swelling. Facial sinuses nontender to palpate. Mucous membrane dry, no mucosal lesion. Throat without erythema, tonsillar hypertrophy or exudate. Uvula in midline, airway patent. Neck/Thyroid: neck supple, full range of motion, no visible masses or meningeal signs. No JVD, non-tender without lymphadenopathy. Skin: no suspicious rashes, lesions over visible areas. Warm and dry and appropriate color for ethnicity. Heart: no clubbing, no cyanosis, no edema. S1 and S2 normal. RRR w/o murmurs, clicks, or bruits. Lungs: Breathing even and unlabored. No stridor. No accessory muscles used. Able to speak in full sentences. Chest: normal shape and expansion. Abdomen: non-obese, non-distended. Neurologic: alert and oriented. Cognitive exam, [employer] and PNS grossly intact on informal exam. Psych: good eye contact, normal affect. Initial Vital Signs Initial Vital Signs: Vital Signs Temperature 98.1 F 02/12/19 13:14 Pulse Rate 84 02/12/19 13:14 Respiratory Rate 18 02/12/19 13:14 Blood Pressure 131/75 02/12/19 13:14 Pulse Oximetry 98 02/12/19 13:14 <Delmis Mathew DO - Last Filed: 02/13/19 07:18> Initial Vital Signs Initial Vital Signs: Vital Signs Temperature 98.1 F 02/12/19 13:14 Pulse Rate 84 02/12/19 13:14 Respiratory Rate 18 02/12/19 13:14 Blood Pressure 131/75 02/12/19 13:14 Pulse Oximetry 98 02/12/19 13:14 Scores <RYAN Ortega - Last Filed: 02/12/19 20:54> GCS Elena coma scale eye opening: Spontaneous Elena coma scale verbal response: Orientated [place] coma scale motor response: Obey commands [place] coma scale total score: 15 Course <RYAN Ortega - Last Filed: 02/12/19 20:54> Orders Ordered: Discontinued Medications Diphenhydramine HCl (Benadryl) 25 mg IV NOW ONE Stop: 02/12/19 15:07 Last Admin: 02/12/19 15:30 Dose: 25 mg Documented by: ANUJ Sodium Chloride (Normal Saline 0.9%) 1,000 mls @ 1,000 mls/hr IV BOLUS ONE Stop: 02/12/19 16:05 Last Infusion: 02/12/19 16:39 Dose: 0 mls/hr Documented by: Admin: 02/12/19 15:29 Dose: 1,000 mls/hr Documented by: ANUJ Ketorolac Tromethamine (Toradol) 30 mg IV NOW ONE Stop: 02/12/19 15:07 Last Admin: 02/12/19 15:30 Dose: 30 mg Documented by: ANUJ Metoclopramide HCl (Reglan) 10 mg IV NOW ONE Stop: 02/12/19 15:34 Last Admin: 02/12/19 15:51 Dose: 10 mg Documented by: ANUJ Vital Signs Vital signs: Vital Signs - 8 hr 02/12/19 13:14 02/12/19 14:45 02/12/19 15:30 Temperature 98.1 F Pulse Rate 84 72 76 Respiratory Rate 18 16 14 Blood Pressure 131/75 Blood Pressure [Left Arm] 136/94 H 128/73 Pulse Oximetry 98 96 98 02/12/19 16:00 02/12/19 17:00 02/12/19 17:34 Temperature Pulse Rate 77 72 92 H Respiratory Rate 18 18 16 Blood Pressure 123/53 L Blood Pressure [Left Arm] 117/61 121/53 L Pulse Oximetry 97 97 97 <Delmis Mathew DO - Last Filed: 02/13/19 07:18> Orders Ordered: Discontinued Medications Diphenhydramine HCl (Benadryl) 25 mg IV NOW ONE Stop: 02/12/19 15:07 Last Admin: 02/12/19 15:30 Dose: 25 mg Documented by: ANUJ Sodium Chloride (Normal Saline 0.9%) 1,000 mls @ 1,000 mls/hr IV BOLUS ONE Stop: 02/12/19 16:05 Last Infusion: 02/12/19 16:39 Dose: 0 mls/hr Documented by: Admin: 02/12/19 15:29 Dose: 1,000 mls/hr Documented by: ANUJ Ketorolac Tromethamine (Toradol) 30 mg IV NOW ONE Stop: 02/12/19 15:07 Last Admin: 02/12/19 15:30 Dose: 30 mg Documented by: ANUJ Metoclopramide HCl (Reglan) 10 mg IV NOW ONE Stop: 02/12/19 15:34 Last Admin: 02/12/19 15:51 Dose: 10 mg Documented by: ANUJ Vital Signs Vital signs: Vital Signs - 8 hr 02/12/19 13:14 02/12/19 14:45 02/12/19 15:30 Temperature 98.1 F Pulse Rate 84 72 76 Respiratory Rate 18 16 14 Blood Pressure 131/75 Blood Pressure [Left Arm] 136/94 H 128/73 Pulse Oximetry 98 96 98 02/12/19 16:00 02/12/19 17:00 02/12/19 17:34 Temperature Pulse Rate 77 72 92 H Respiratory Rate 18 18 16 Blood Pressure 123/53 L Blood Pressure [Left Arm] 117/61 121/53 L Pulse Oximetry 97 97 97 MDM - Headache <Chau Olivarez-RYAN Cantor - Last Filed: 02/12/19 20:54> Differential Diagnosis Differential diagnosis: Likely migraine and meningitis Medical Records Attestation: I reviewed the patient's medical records. [facility] Narrative Medical decision making narrative: This is a 33-year-old female with a history of migraine headache who presents to ED with 5 day duration of unrelieved migraine headache. Patient has been having nausea and vomiting last 12 hours and unable to do medications or fluids. Patient reports photophobia and similar characteristic of headache but increase in severity and duration. Patient denies constitutional symptoms, unusual rash, trauma to head or meningeal signs. Patient had used her routine medications at home but unsuccessful to treat her headache. Patient was medicated with IV fluid, Benadryl, Reglan and Toradol and rested in ED. patient was easily aroused and reports her symptoms have improved and is ready to go home. Vital signs has been stable in ED and was able to tolerate small sips of liquids prior discharged to home. Few tabs of Fioricet has been refilled and advised to use sparingly to avoid rebound headache. Return precautions were discussed with the patient and advised to follow with PCP next week. Patient verbalized understanding and agrees with treatment plan. Discharge Plan Departure Patient Disposition: Home Clinical Impression: Migraine Qualifiers: Migraine type: unspecified Status migrainosus presence: without status migrainosus Intractability: not intractable Qualified Code(s): G43.909 - Migraine, unspecified, not intractable, without status migrainosus Discharge Date/Time: 02/12/19 17:34 Instructions: DI for Migraine Activity Restrictions/Additional Instructions: You have been diagnosed with [migraine headache. You were treated with IV fluid, IV medication of Zofran, Reglan, Benadryl which you found improvement after.]. What to do: *Take your medications as directed. Please take Fioricet for only as needed and severe pain since this could give the rebound headache. Please use Zofran as needed for nausea that you have at home so that you could hydrate herself. Fioricet has been transmitted to [facility] in [place]. *Follow up with your primary care provider in 2-3 days, call for an appointment. Let them know you were seen in the ED and that we asked you to be seen in follow up. *Return to ED if you have any new, worsening, or concerning symptoms, such as [chest pain, breathing difficulty, fever, unusual behavior, seizure, unusual rash, increasing headache, stroke symptoms or any acute concerns]. Prescriptions: New qolybkmlui-oxztlnwhpjmkt-fgqa 50-325-40 mg tablet 1 tab PO Q6H PRN (Reason: pain) Qty: 10 RF: 0 euznoqwxnf-lsenpvj-ewzpmbmx [Fiorinal] 50-325-40 mg capsule 1 cap PO Q6H PRN (Reason: pain) Qty: 10 RF: 0 No Action sertraline [Zoloft] 100 MG tablet 200 mg PO QPM Qty: 0 RF: 0 atenolol 50 MG tablet 50 mg PO QPM Qty: 0 RF: 0 ibuprofen 200 mg Tablet 800 mg PO TID PRN (Reason: pain) RF: 0 metformin 500 mg tablet 500 mg PO BID RF: 0 budesonide 0.5 mg/2 mL suspension for nebulization 0.5 mg inhalation QPM RF: 0 bupropion HCl 300 mg tablet extended release 24 hr 300 mg PO QAM RF: 0 tizanidine 4 mg capsule 4 mg PO TID RF: 0 rizatriptan [Maxalt-SCRAP METAL BURNER] 10 mg Tablet,Disintegrating 10 mg translingual PRN PRN (Reason: Migraine Headache) RF: 0 gabapentin 300 mg Capsule 300 - 600 mg PO BEDTIME RF: 0 acetaminophen [Tylenol Extra Strength] 500 mg Tablet 1,000 mg PO Q6H PRN (Reason: Pain (Scale Score 1-3)) RF: 0 albuterol sulfate 90 mcg/actuation Hfa Aerosol Inhaler 2 puff INHALATION Q4-6H PRN (Reason: Dyspnea) RF: 0 diazepam [Valium] 5 mg tablet 5 mg PO Q8H PRN (Reason: spasms) Qty: 10 RF: 1 Referrals: Chu Kaplan DO [Primary Care Provider] -
[2019-02-12] MEDS: SODIUM CHLORIDE 0.9% 1,000 ML 1000 ML IV (15:29)
[2019-02-12 15:30] VITALS: BP 128/73; PULSE 76; RESP 14; O2SAT 98
[2019-02-12] MEDS: KETOROLAC 60 MG/2 ML VIAL 30 MG IV (15:30)
[2019-02-12] MEDS: diphenhydrAMINE 50 MG/ML VIAL 25 MG IV (15:30)
[2019-02-12] MEDS: METOCLOPRAMIDE 10 MG/2 ML INJ IV (15:51)
[2019-02-12 16:00] VITALS: BP 117/61; PULSE 77; RESP 18; O2SAT 97
[2019-02-12 17:00] VITALS: BP 121/53; PULSE 72; RESP 18; O2SAT 97
[2019-02-12 17:34] VITALS: BP 123/53; PULSE 92; RESP 16; O2SAT 97
== END 2019-02-12 17:34 | disposition home or self-care (01) ==
PROVIDERS: Emergency Provider Nurse Practitioner Family; PCP Family Medicine
DX: G43.911 Migraine, unspecified, intractable, with status migrainosus (principal)
CPT/HCPCS: 36415; 96361; 96374; 96375; 99284; J1200; J1885; J2765

== ENCOUNTER 2019-02-13 13:26 | Emergency (ER) | payer OTHER, SELFPAY ==
[2019-02-13 13:31] VITALS: BP 123/82; PULSE 87; RESP 16; TEMP 36.9; O2SAT 97; BMI 40.7
--- NOTE | 2019-02-13 13:54 | DI.CT.S_ITS ---
PROCEDURE: CT HEAD/BRAIN WO CON INDICATIONS: severe headache with nausea/vomiting TECHNIQUE: Noncontrast 4.5 mm thick angled axial sections acquired from the foramen magnum to the vertex, with coronal and sagittal reformats. For radiation dose reduction, the following was used: automated exposure control, adjustment of mA and/or kV according to patient size. COMPARISON: [facility], CT, CT SINUS SCREEN WO CON, 08/21/2018, 9:36. FINDINGS: Image quality: Excellent. CSF spaces: Basal cisterns are patent. No extra-axial fluid collections. Ventricles are normal in size and shape. Brain: No midline shift. No intracranial masses or hemorrhage. Benitez-white matter interface is normal. Skull and face: Calvarium and visualized facial bones are intact, without suspicious lesions. Sinuses: There is a mucus retention cyst is seen within the right maxillary sinus. Mild mucosal thickening is seen within the paranasal sinuses. No abnormal fluid is seen within the mastoid air cells. IMPRESSION: Unremarkable intracranial study, without an imaging explanation found for the patient's presenting history of headache. No acute intracranial hemorrhage is seen. Dictated by: Jim Mireles M.D. on 02/13/2019 at 13:17 Approved by: Jim Mireles M.D. on 02/13/2019 at 13:18
[2019-02-13] MEDS: diphenhydrAMINE 50 MG/ML VIAL 25 MG IV (14:08)
[2019-02-13] MEDS: KETOROLAC 60 MG/2 ML VIAL 30 MG IV (14:08)
[2019-02-13] MEDS: SODIUM CHLORIDE 0.9% 1,000 ML 1000 ML IV (14:10)
--- NOTE | 2019-02-13 14:28 | ED.HA ---
HPI - Headache <RYAN Ortega - Last Filed: 02/13/19 19:23> General Chief Complaint: Headache Stated Complaint: migraine Source: patient and EMS Mode of arrival: Ambulatory Limitations: no limitations History of Present Illness HPI Narrative: This is a 33-year-old female, nonsmoker, who return to ED from a visit from yesterday with same c/o of severe migraine headaches for 6 days with nausea and photophobia. She described as worst headache and now she also had mid back pain. She also report R side eye pain behind the upper eye lid. Patient has a history of migraine headaches and takes preventive medication atenolol and as needed Maxalt and Fioricet. Patient reports this headache is in similar character but more severe and lasting longer than usual. When she was discharged from ED yesterday, her headaches had improved and she was able to tolerate food and went to bed. When she woke up this morning the headache recurred and states she feels pounding and pulsation in her head when she changes position from lying to sitting and standing. She reports vision change in standing position and had to go back to bed and took 0.5 tab of Fioricet. Reports her legs are feeling like Jell-O. She reports frontal headache with flexing of her head. Patient usually does not have a migraine headache greater than 72 hours. Patient states she had used all her medications in addition to Tylenol and Motrin and her friends Imitrex. Patient reports there is no improvement in headaches and also reports decreased oral hydration this morning but states has been trying to hydrate well. She has been having some nausea and vomiting. Patient denies fever, unusual rashes, nuchal rigidity, vision change, dysphagia or dysphasia. Patient reports history of akathisia from using Compazine in the past. Last CT about 3 years ago [facility]. Related Data Home Medications Medication Instructions Recorded Confirmed atenolol 50 mg PO QPM #0 03/24/17 02/12/19 sertraline [Zoloft] 200 mg PO QPM #0 03/24/17 02/12/19 gabapentin 300 - 600 mg PO BEDTIME 11/14/17 02/12/19 acetaminophen [Tylenol Extra 1,000 mg PO Q6H PRN 11/21/17 02/12/19 Strength] albuterol sulfate 2 puff INHALATION Q4-6H PRN 11/21/17 02/12/19 ibuprofen 800 mg PO TID PRN 02/18/18 02/12/19 budesonide 0.5 mg INHALATION QPM 02/12/19 02/12/19 bupropion HCl 300 mg PO QAM 02/12/19 02/12/19 metformin 500 mg PO BID 02/12/19 02/12/19 rizatriptan [Maxalt-NURSE CHEMICAL DEPENDENCY] 10 mg TRANSLINGUAL PRN PRN 02/12/19 02/12/19 tizanidine 4 mg PO TID 02/12/19 02/12/19 Previous Rx's Medication Instructions Recorded diazepam [Valium] 5 mg PO Q8H PRN #10 tab 11/21/17 uohvcgehvn-vyprqzhamqsdf-qcdv 1 tab PO Q6H PRN #10 tab 02/12/19 sjjnzlqmsh-ruqmwet-xutvncwi 1 cap PO Q6H PRN #10 cap 02/12/19 [Fiorinal] ondansetron 4 mg PO Q6-8H PRN #10 tab 02/13/19 Allergies Allergy/AdvReac Type Severity Reaction Status Date / Time adhesive tape Allergy Severe Break out Verified 02/12/19 13:17 really bad erythromycin base Allergy Intermediate ITCHY/HIVES Verified 02/12/19 13:17 [From ERYTHROCIN] oxycodone [From PERCOCET] Allergy Intermediate Itching, Verified 02/12/19 13:17 vomiting prochlorperazine Allergy Intermediate ITCHING Verified 02/12/19 13:17 [From Compazine] hydrocodone [HYDROCODONE] AdvReac Severe VOMITING Verified 02/12/19 13:17 oseltamivir [From TAMIFLU] AdvReac Intermediate DELUSIONS Verified 02/12/19 13:17 Review of Systems <RYAN Ortega - Last Filed: 02/13/19 19:23> Review of Systems Narrative: General: Denies fever, chills, fatigue, malaise, sweats. HEENT: Denies sinus pain, ear pain, sore throat, difficulty swallowing, dizziness. Respiratory: Denies dyspnea, cough, wheezing, hemoptysis, sputum. Cardiovascular: Denies chest pain, palpitations, orthopnea, edema. Gastrointestinal: Reports nausea. Denies vomiting, abdominal pain, diarrhea, constipation, melena. : Denies dysuria, frequency, incontinence, hematuria, urinary retention. Musculoskeletal: Denies weakness, joint pain or bony pain. Skin: Denies rash, skin lesions, or other. Neurologic: Severe migraine headache. Denies weakness, numbness, change in speech, confusion, seizures, incoordination. Psychiatric: No concerning psychosocial issues. 12-point review of systems is negative except for those stated above. Patient History <RYAN Ortega - Last Filed: 02/13/19 19:23> Social History household members: spouse and children Smoking Status: Never smoker alcohol intake: current Smoking Status: Never smoker alcohol intake frequency: a few times a month Substance Use Type: does not use Exam <RYAN Ortega - Last Filed: 02/13/19 19:23> Narrative Exam Narrative: GEN: Alert, oriented x 3, well nourished, and appears to be in discomfort, resting in dark room. Head: Normal cephalic, atraumatic. No scalp or temporal tenderness, palpable mass or rash. EYES: Pupils are equal, round, and reactive to light and accommodation. Extraocular muscles are intact bilaterally. Tender in behind the R upper eyelid with EOM. There is no subconjunctival hemorrhage, exudate and sclera non-icteric. ENT: Left auditory canals and tympanic membranes clear, R AC obscured by cerumen. Hearing grossly intact. Nose without bleeding, purulent discharge, septal hematoma or deviation. Turbinate with erythema or swelling, worse in L nostril. Facial sinuses nontender to palpate. Mucous membrane dry, no mucosal lesion. Throat without erythema, tonsillar hypertrophy or exudate. Uvula in midline, airway patent. Neck: Trachea in midline. No JVD, non-tender without lymphadenopathy. No masses or thyroid megaly. Supple, non-tender and no meningeal signs. CARDIAC: Normal regular rate and rhythm without murmurs, gallops, or rubs. No chest wall tenderness. No peripheral edema, cyanosis or pallor. Capillary refill is less than 2 seconds. No carotid bruits. RESPIRATORY: Lungs are cleat to auscultate bilaterally. No cough, wheezes, rales, or rhonchi. No stridor, respiratory distress, increase work of breathing, or accessary muscle used. ABD: Abdomen soft, nontender and non-distended. No guarding or rebound tenderness to palpate. Bowel sounds are normal in all 4 quadrants. There is no palpable masses or organomegaly. EXT: Full painless ROM of all extremities with no loss of sensation, strength, effusion or edema. SKIN: Warm, dry, pale but normal conjunctival color. No erythema, lesions or rash. BACK: Tender in paraspinal area on mid back. No deformity or crepitance appreciated. No flank tenderness. NEUROLOGICAL: Alert and oriented to place, time and person. No facial droops, dysphasia. CN II-XII intact. Strength and sensation symmetric and intact throughout. Reflexes 2+ throughout. Cerebellar testing normal. PSYCHIATRIC: Good judgement and reason, without hallucinations, abnormal affect or abnormal behaviors during the examination. Patient is not suicidal. Initial Vital Signs Initial Vital Signs: Vital Signs Temperature 98.4 F 02/13/19 13:31 Pulse Rate 87 02/13/19 13:31 Respiratory Rate 16 02/13/19 13:31 Blood Pressure 123/82 02/13/19 13:31 Pulse Oximetry 97 02/13/19 13:31 <Delmis Mathew DO - Last Filed: 02/21/19 07:38> Initial Vital Signs Initial Vital Signs: Vital Signs Temperature 98.4 F 02/13/19 13:31 Pulse Rate 87 02/13/19 13:31 Respiratory Rate 16 02/13/19 13:31 Blood Pressure 123/82 02/13/19 13:31 Pulse Oximetry 97 02/13/19 13:31 Scores <RYAN Ortega - Last Filed: 02/13/19 19:23> GCS Elena coma scale eye opening: Spontaneous Hollins coma scale verbal response: Orientated Hollins coma scale motor response: Obey commands Hollins coma scale total score: 15 NIH Stroke Scale Level of Conciousness: Alert, keenly responsive Ask month/age: Answers both questions correctly. Open/close eyes, close hand: Performs both tasks correctly Best gaze horizontal: Normal Visual hand: No visual loss Facial palsy: Normal symetrical movement Left arm drift: No drift for full 10 sec Right arm drift: No drift for full 10 sec Left leg drift: No drift for full 10 sec Right leg drift: No drift for full 10 sec Limb ataxia: Absent Sensory on face/arms/legs: Normal, no sensory loss Best language: No aphasia, normal Dysarthria: Normal Extinction or inattention: No abnormality Total NIH Stroke scale score: 0 Course <RYAN Ortega - Last Filed: 02/13/19 19:23> Orders Ordered: Discontinued Medications Dexamethasone (Decadron) 10 mg IV NOW ONE Stop: 02/13/19 14:45 Last Admin: 02/13/19 14:57 Dose: 10 mg Documented by: LEXIE Diphenhydramine HCl (Benadryl) 25 mg IV NOW ONE Stop: 02/13/19 13:54 Last Admin: 02/13/19 14:08 Dose: 25 mg Documented by: BEATRIZ Sodium Chloride (Normal Saline 0.9%) 1,000 mls @ 1,000 mls/hr IV BOLUS ONE Stop: 02/13/19 14:52 Last Infusion: 02/13/19 17:03 Dose: 0 mls/hr Documented by: Admin: 02/13/19 14:10 Dose: 1,000 mls/hr Documented by: BEATRIZ Ketorolac Tromethamine (Toradol) 30 mg IV NOW ONE Stop: 02/13/19 13:54 Last Admin: 02/13/19 14:08 Dose: 30 mg Documented by: BEATRIZ Metoclopramide HCl (Reglan) 10 mg IV NOW ONE Stop: 02/13/19 14:31 Last Admin: 02/13/19 14:38 Dose: 10 mg Documented by: ANUJ Vital Signs Vital signs: Vital Signs - 8 hr 02/13/19 13:31 02/13/19 14:33 02/13/19 15:30 Temperature 98.4 F Pulse Rate 87 70 78 Respiratory Rate 16 Blood Pressure 123/82 Blood Pressure [Right Arm] 135/65 137/74 Pulse Oximetry 97 99 98 02/13/19 16:19 02/13/19 17:45 Temperature Pulse Rate 79 80 Respiratory Rate Blood Pressure Blood Pressure [Right Arm] 137/79 130/60 Pulse Oximetry 97 97 <Delmis Mathew DO - Last Filed: 02/21/19 07:38> Orders Ordered: Discontinued Medications Dexamethasone (Decadron) 10 mg IV NOW ONE Stop: 02/13/19 14:45 Last Admin: 02/13/19 14:57 Dose: 10 mg Documented by: LEXIE Diphenhydramine HCl (Benadryl) 25 mg IV NOW ONE Stop: 02/13/19 13:54 Last Admin: 02/13/19 14:08 Dose: 25 mg Documented by: BEATRIZ Sodium Chloride (Normal Saline 0.9%) 1,000 mls @ 1,000 mls/hr IV BOLUS ONE Stop: 02/13/19 14:52 Last Infusion: 02/13/19 17:03 Dose: 0 mls/hr Documented by: Admin: 02/13/19 14:10 Dose: 1,000 mls/hr Documented by: BEATRIZ Ketorolac Tromethamine (Toradol) 30 mg IV NOW ONE Stop: 02/13/19 13:54 Last Admin: 02/13/19 14:08 Dose: 30 mg Documented by: BEATRIZ Metoclopramide HCl (Reglan) 10 mg IV NOW ONE Stop: 02/13/19 14:31 Last Admin: 02/13/19 14:38 Dose: 10 mg Documented by: ANUJ Vital Signs Vital signs: Vital Signs - 8 hr 02/13/19 13:31 02/13/19 14:33 02/13/19 15:30 Temperature 98.4 F Pulse Rate 87 70 78 Respiratory Rate 16 Blood Pressure 123/82 Blood Pressure [Right Arm] 135/65 137/74 Pulse Oximetry 97 99 98 02/13/19 16:19 02/13/19 17:45 Temperature Pulse Rate 79 80 Respiratory Rate Blood Pressure Blood Pressure [Right Arm] 137/79 130/60 Pulse Oximetry 97 97 MDM - Headache <Chau SherRYAN Cantor - Last Filed: 02/13/19 19:23> Differential Diagnosis Differential diagnosis: Likely migraine, subarachnoid hemorrhage, sinusitis and other (Dehydration) Medical Records Attestation: I reviewed the patient's medical records. Lab Data Attestation: I reviewed the patient's lab results. Result diagrams: 02/13/19 14:25 02/13/19 14:25 Labs: Lab Results 02/13/19 02/13/19 Range/Units 14:25 14:25 WBC 5.6 (4.5-11.0) X10^3/uL RBC 4.38 (4.0-5.2) X10^6/uL Hgb 13.1 (12.0-16.0) g/dL Hct 37.6 (36-46) % MCV 85.8 (80-100) fL MCH 30.0 (26-34) PG MCHC 35.0 (30-36) % RDW 12.3 (11.6-14.8) % Plt Count 214 (150-400) X10^3/uL Neut % (Auto) 63.5 (50-75) % Lymph % (Auto) 28.4 (25-40) % Graham % (Auto) 7.0 (3-14) % Eos % (Auto) 0.7 L (2-4) % Baso % (Auto) 0.4 (0-2) % Neut # (Auto) 3600 (9939-5997) /uL Lymph # (Auto) 1600 (6309-4713) /uL Graham # (Auto) 400 (0-900) /uL Eos # (Auto) 0 (0-450) /uL Baso # (Auto) 0 (0-100) /uL Sodium 138 (137-145) mmol/L Potassium 3.9 (3.4-5.1) mmol/L Chloride 103 (98-107) mmol/L Carbon Dioxide 26 (22-32) mmol/L BUN 6 L (7-17) mg/dL Creatinine 0.50 L (0.52-1.04) mg/dL Estimated GFR > 60.0 (>60) mL/min BUN/Creatinine Ratio 12.0 (6-22) Glucose 220 H (70-100) mg/dL Calcium 9.4 (8.4-10.2) mg/dL Total Bilirubin 0.4 (0.2-1.3) mg/dL AST 28 (14-36) IU/L ALT 23 (<35) IU/L Alkaline Phosphatase 66 (38-126) U/L Total Protein 6.8 (6.3-8.2) g/dL Albumin 4.1 (3.5-5.0) g/dL Globulin 2.7 (1.7-4.1) g/dL Albumin/Globulin Ratio 1.5 (1.0-2.8) Point of Care Testing Test Results Negative Glucose POC 185 Urine Dip Bedside Urine Glucose 500 mg/dl Bedside Urine Bilirubin - Negative Bedside Urine Ketone - Negative Urine Specific [place] 1.010 Bedside Urine Occult Blood - Negative Bedside Urine pH 6.5 Bedside Urine Protein - Negative Bedside Urine Urobilinogen - Negative Bedside Urine Nitrite - Negative Bedside Urine Leukocytes - Negative Esterase Imaging Data CT scan - head: Radiologist's impression: [address] [address] [address] Scan Report Signed Patient: Lola Dasilva CMR#: [id number] : 1985Acct:[id number] Age/Sex: 33 / FDate of Service: 02/13/19 Loc: ED Accession Number: [id number] Procedure: CT head/brain wo con Ordering Provider: Chau Lowery PROCEDURE: CT HEAD/BRAIN WO CON INDICATIONS: severe headache with nausea/vomiting TECHNIQUE: Noncontrast 4.5 mm thick angled axial sections acquired from the foramen magnum to the vertex, with coronal and sagittal reformats. For radiation dose reduction, the following was used: automated exposure control, adjustment of mA and/or kV according to patient size. COMPARISON: [facility], CT, CT SINUS SCREEN WO CON, 08/21/2018, 9:36. FINDINGS: Image quality: Excellent. CSF spaces: Basal cisterns are patent. No extra-axial fluid collections. Ventricles are normal in size and shape. Brain: No midline shift. No intracranial masses or hemorrhage. Benitez-white matter interface is normal. Skull and face: Calvarium and visualized facial bones are intact, without suspicious lesions. Sinuses: There is a mucus retention cyst is seen within the right maxillary sinus. Mild mucosal thickening is seen within the paranasal sinuses. No abnormal fluid is seen within the mastoid air cells. IMPRESSION: Unremarkable intracranial study, without an imaging explanation found for the patient's presenting history of headache. No acute intracranial hemorrhage is seen. Dictated by: Jim Mireles M.D. on 02/13/2019 at 13:17 Approved by: Jim Mireles M.D. on 02/13/2019 at 13:18 MDM Narrative Medical decision making narrative: This is a 33-year-old female who has history of migraine, PCOS (on Metformin), and depression/anxiety returned from yesterday's visit with chief complain of migraine headache who already is taking preventive, maintenance, as needed headache medication regimen. Patient reports after she was discharged from ED yesterday she felt better but when she woke up this morning the headache was worst and described as worst headache events of the duration and severity. Patient reports headache is worse with changing in position from is lying to sitting and standing with throbbing and pulsating with nausea and photophobia. Patient also today noticed mid back pain. Physical exam for neuro and headache were benign. Patient does not have unusual rash, fever, nuchal rigidity but rather dried oral mucous membrane. Given patient's headache severity and duration, CT of head was obtained. CT test shows no acute findings such as mass or intracranial hemorrhage. There was mild mucosal thickening in paranasal sinus and mucus retained cyst in right maxillary sinus which patient is already aware. No leukocytosis and patient has been afebrile in ED. chemistry test was unremarkable except elevated blood glucose is 220. Patient states she just had lunch before coming into ED. patient was hydrated with 2 L of normal saline and IV medications- Benadryl, Reglan, Toradol. Patient also was treated with IV dexamethasone 10 mg for recurring migraine headache. After the treatments, patient's headache much improved and rates as 4/10, patient was able to ambulate to the bathroom and back to bed in stable gait, was able to tolerate oral hydration without nausea or vomiting. Again return precautions were discussed with the patient and advised to follow up with her primary care physician hoping to get a referral to headache specialist. Patient advised to continue with her sinus medication regimen with the steroid rinse. Patient verbalized understanding and agrees with the treatment plan. Patient discharged to home with Zofran to hydrate herself. Patient also advised to follow up with PCP on elevated blood sugar informing that urine glucose was also appreciated. Back pain is likely due to patient has been on bed rest prolonged time. No indications for urinary tract infection at this time. Patient is not . <Delmis Mathew, - Last Filed: 02/21/19 07:38> Lab Data Labs: Lab Results 02/13/19 02/13/19 Range/Units 14:25 14:25 WBC 5.6 (4.5-11.0) X10^3/uL RBC 4.38 (4.0-5.2) X10^6/uL Hgb 13.1 (12.0-16.0) g/dL Hct 37.6 (36-46) % MCV 85.8 (80-100) fL MCH 30.0 (26-34) PG MCHC 35.0 (30-36) % RDW 12.3 (11.6-14.8) % Plt Count 214 (150-400) X10^3/uL Neut % (Auto) 63.5 (50-75) % Lymph % (Auto) 28.4 (25-40) % Graham % (Auto) 7.0 (3-14) % Eos % (Auto) 0.7 L (2-4) % Baso % (Auto) 0.4 (0-2) % Neut # (Auto) 3600 (2318-8688) /uL Lymph # (Auto) 1600 (6826-4715) /uL Graham # (Auto) 400 (0-900) /uL Eos # (Auto) 0 (0-450) /uL Baso # (Auto) 0 (0-100) /uL Sodium 138 (137-145) mmol/L Potassium 3.9 (3.4-5.1) mmol/L Chloride 103 (98-107) mmol/L Carbon Dioxide 26 (22-32) mmol/L BUN 6 L (7-17) mg/dL Creatinine 0.50 L (0.52-1.04) mg/dL Estimated GFR > 60.0 (>60) mL/min BUN/Creatinine Ratio 12.0 (6-22) Glucose 220 H (70-100) mg/dL Calcium 9.4 (8.4-10.2) mg/dL Total Bilirubin 0.4 (0.2-1.3) mg/dL AST 28 (14-36) IU/L ALT 23 (<35) IU/L Alkaline Phosphatase 66 (38-126) U/L Total Protein 6.8 (6.3-8.2) g/dL Albumin 4.1 (3.5-5.0) g/dL Globulin 2.7 (1.7-4.1) g/dL Albumin/Globulin Ratio 1.5 (1.0-2.8) Point of Care Testing Test Results Negative Glucose POC 185 Urine Dip Bedside Urine Glucose 500 mg/dl Bedside Urine Bilirubin - Negative Bedside Urine Ketone - Negative Urine Specific [place] 1.010 Bedside Urine Occult Blood - Negative Bedside Urine pH 6.5 Bedside Urine Protein - Negative Bedside Urine Urobilinogen - Negative Bedside Urine Nitrite - Negative Bedside Urine Leukocytes - Negative Esterase Discharge Plan Departure Patient Disposition: Home Clinical Impression: Hyperglycemia Migraine Qualifiers: Migraine type: unspecified Status migrainosus presence: with status migrainosus Intractability: not intractable Qualified Code(s): G43.901 - Migraine, unspecified, not intractable, with status migrainosus Discharge Date/Time: 02/13/19 17:48 Instructions: DI for Migraine Activity Restrictions/Additional Instructions: You have been diagnosed with [migraine headache. You were treated with IV fluid, Reglan, Benadryl, Toradol and Dexamethasone. Head CT test does not indicated acute intracranial hemorrhage or mass. CT showed mild paranasal sinuses mucosal thickening and a mucus retention cyst in R maxillar sinus which you had already known. The blood tests were unremarkable except elevated glucose. Urine test also showed glucose today w/o indication for infection]. What to do: *Take your medications as directed. Take your medications for headache regimen. Take Zofran as needed for nausea and this has been transmitted to [facility] in [place].. *Follow up with your primary care provider in 2-3 days, call for an appointment. Let them know you were seen in the ED and that we asked you to be seen in follow up. Please follow-up with your elevated blood sugar with her PCP. *Return to ED if you have any new, worsening, or concerning symptoms, such as [fever, neck tightness, unusual rash, stroke type symptoms such as speech difficulty, weakness to limbs, severe headache, chest pain, breathing difficulty, unable to tolerate fluids or any acute concerns]. Prescriptions: New ondansetron 4 mg tablet,disintegrating 4 mg PO Q6-8H PRN (Reason: nausea and vomiting) Qty: 10 RF: 0 No Action sertraline [Zoloft] 100 MG tablet 200 mg PO QPM Qty: 0 RF: 0 atenolol 50 MG tablet 50 mg PO QPM Qty: 0 RF: 0 ibuprofen 200 mg Tablet 800 mg PO TID PRN (Reason: pain) RF: 0 metformin 500 mg tablet 500 mg PO BID RF: 0 budesonide 0.5 mg/2 mL suspension for nebulization 0.5 mg inhalation QPM RF: 0 bupropion HCl 300 mg tablet extended release 24 hr 300 mg PO QAM RF: 0 tizanidine 4 mg capsule 4 mg PO TID RF: 0 rizatriptan [Maxalt-NURSE CHEMICAL DEPENDENCY] 10 mg Tablet,Disintegrating 10 mg translingual PRN PRN (Reason: Migraine Headache) RF: 0 hujjuhyblv-rzlfhiagyifiu-huno 50-325-40 mg tablet 1 tab PO Q6H PRN (Reason: pain) Qty: 10 RF: 0 bapcebekki-zerfwwr-pwebklos [Fiorinal] 50-325-40 mg capsule 1 cap PO Q6H PRN (Reason: pain) Qty: 10 RF: 0 gabapentin 300 mg Capsule 300 - 600 mg PO BEDTIME RF: 0 acetaminophen [Tylenol Extra Strength] 500 mg Tablet 1,000 mg PO Q6H PRN (Reason: Pain (Scale Score 1-3)) RF: 0 albuterol sulfate 90 mcg/actuation Hfa Aerosol Inhaler 2 puff INHALATION Q4-6H PRN (Reason: Dyspnea) RF: 0 diazepam [Valium] 5 mg tablet 5 mg PO Q8H PRN (Reason: spasms) Qty: 10 RF: 1 Referrals: Chu Kaplan DO [Primary Care Provider] -
[2019-02-13 14:33] VITALS: BP 135/65; PULSE 70; O2SAT 99
[2019-02-13 14:35] LABS: Add Manual Diff / Slide Review NO; Basophils Absolute Auto 0 /uL (0-100); Basophils Percent Auto 0.4 % (0-2); Eosinophils Absolute Auto 0 /uL (0-450); Eosinophils Percent Auto 0.7 % (2-4); Hematocrit 37.6 % (36-46); Hemoglobin 13.1 g/dL (12.0-16.0); Lymphocytes Absolute Auto 1600 /uL (1100-4500); Lymphocytes Percent Auto 28.4 % (25-40); Mean Corpuscular Volume 85.8 fL (80-100); Monocytes Absolute Auto 400 /uL (0-900); Neutrophils Absolute Auto 3600 /uL (1500-7000); Neutrophils Percent Auto 63.5 % (50-75); Platelet Count 214 X10^3/uL (150-400); Red Blood Cell Count 4.38 X10^6/uL (4.0-5.2); Red Cell Distribution Width 12.3 % (11.6-14.8); White Blood Cell Count 5.6 X10^3/uL (4.5-11.0)
[2019-02-13] MEDS: METOCLOPRAMIDE 10 MG/2 ML INJ IV (14:38)
[2019-02-13 14:46] LABS: Alanine Aminotransferase 23 IU/L (<35); Albumin 4.1 g/dL (3.5-5.0); Albumin Globulin Ratio 1.5 (1.0-2.8); Alkaline Phosphatase 66 U/L (38-126); Aspartate Aminotransferase 28 IU/L (14-36); Bilirubin Total 0.4 mg/dL (0.2-1.3); Blood Urea Nitrogen 6 mg/dL (7-17); Calcium 9.4 mg/dL (8.4-10.2); Carbon Dioxide 26 mmol/L (22-32); Chloride 103 mmol/L (98-107); Estimated Glomerular Filt Rate > 60.0 mL/min (>60); Globulin 2.7 g/dL (1.7-4.1); Glucose 220 mg/dL (70-100); HEMOLYSIS < 15 (0-50); Potassium 3.9 mmol/L (3.4-5.1); Sodium 138 mmol/L (137-145); Total Protein 6.8 g/dL (6.3-8.2)
[2019-02-13] MEDS: DEXAMETHASONE 10 MG/ML VIAL IV (14:57)
[2019-02-13 15:30] VITALS: BP 137/74; PULSE 78; O2SAT 98
[2019-02-13 16:19] VITALS: BP 137/79; PULSE 79; O2SAT 97
[2019-02-13 17:45] VITALS: BP 130/60; PULSE 80; O2SAT 97
== END 2019-02-13 17:48 | disposition home or self-care (01) ==
PROVIDERS: Emergency Provider Nurse Practitioner Family; PCP Family Medicine
DX: G43.911 Migraine, unspecified, intractable, with status migrainosus (principal); R73.9 Hyperglycemia, unspecified
CPT/HCPCS: 36415; 70450; 80053; 81003; 81025; 82962; 85025; 96361; 96374; 96375; 99284; J1100; J1200; J1885; J2765

== ENCOUNTER 2019-04-01 20:26 | Emergency (ER) | payer OTHER, SELFPAY ==
[2019-04-01 20:27] VITALS: BP 138/81; PULSE 101; RESP 18; TEMP 36.5; O2SAT 97; BMI 36.8
--- NOTE | 2019-04-01 21:20 | ED.BACK ---
HPI - Back Pain/Injury General Chief Complaint: Back Pain/Injury Stated Complaint: LOW BACK, LEFT HIP AND LEG PAIN, NUMBNESS Time Seen by Provider: 04/01/19 21:20 Source: patient Mode of arrival: Ambulatory Limitations: no limitations History of Present Illness HPI Narrative: 33-year-old female without a prior history of lower back pain here for evaluation of 1 week of worsening left-sided lower back pain radiating down her left leg. No urinary symptoms. No fevers. No bowel changes. Has not tried anything for symptoms. No specific injury. Not worse with palpation. Does get worse with movement. Related Data Home Medications Medication Instructions Recorded Confirmed atenolol 50 mg PO QPM #0 03/24/17 02/12/19 sertraline [Zoloft] 200 mg PO QPM #0 03/24/17 02/12/19 gabapentin 300 - 600 mg PO BEDTIME 11/14/17 02/12/19 acetaminophen [Tylenol Extra 1,000 mg PO Q6H PRN 11/21/17 02/12/19 Strength] albuterol sulfate 2 puff INHALATION Q4-6H PRN 11/21/17 02/12/19 ibuprofen 800 mg PO TID PRN 02/18/18 02/12/19 budesonide 0.5 mg INHALATION QPM 02/12/19 02/12/19 bupropion HCl 300 mg PO QAM 02/12/19 02/12/19 metformin 500 mg PO BID 02/12/19 02/12/19 rizatriptan [Maxalt-PIPING DESIGN SPECIALIST] 10 mg TRANSLINGUAL PRN PRN 02/12/19 02/12/19 tizanidine 4 mg PO TID 02/12/19 02/12/19 Previous Rx's Medication Instructions Recorded diazepam [Valium] 5 mg PO Q8H PRN #10 tab 11/21/17 gzpcdvzwmr-cfaaxuqjrljrr-erbl 1 tab PO Q6H PRN #10 tab 02/12/19 xvqecnlbru-tcegvsf-yphuifpt 1 cap PO Q6H PRN #10 cap 02/12/19 [Fiorinal] ondansetron 4 mg PO Q6-8H PRN #10 tab 02/13/19 cyclobenzaprine 10 mg PO TID PRN #12 tab 04/01/19 prednisone 40 mg PO DAILY 3 Days #6 tab 04/01/19 tramadol [Ultram] 50 mg PO Q6H PRN #10 tab 04/01/19 Allergies Allergy/AdvReac Type Severity Reaction Status Date / Time adhesive tape Allergy Severe Break out Verified 04/01/19 20:33 really bad erythromycin base Allergy Intermediate ITCHY/HIVES Verified 04/01/19 20:33 [From ERYTHROCIN] oxycodone [From PERCOCET] Allergy Intermediate Itching, Verified 04/01/19 20:33 vomiting prochlorperazine Allergy Intermediate ITCHING Verified 04/01/19 20:33 [From Compazine] hydrocodone [HYDROCODONE] AdvReac Severe VOMITING Verified 04/01/19 20:33 oseltamivir [From TAMIFLU] AdvReac Intermediate DELUSIONS Verified 04/01/19 20:33 Review of Systems Constitutional Constitutional: Denies fever(s) Cardiovascular Cardiovascular: Denies chest pain and Denies dyspnea Respiratory Respiratory: Denies dyspnea Gastrointestinal Gastrointestinal: Denies abdominal pain Genitourinary Genitourinary: Denies dysuria, Denies urinary incontinence, Denies urinary hesitancy, Denies urinary urgency and Denies vaginal discharge Musculoskeletal Musculoskeletal: Denies abnormal gait, Reports back pain, Reports radiating pain into limb and Reports tingling Integumentary/Breasts Skin/Breast: Denies rash Neurologic Neurologic: Denies abnormal gait, Denies behavioral changes, Reports tingling and Reports paresthesias Psychiatric Psychiatric: Denies behavioral changes Hematologic/Lymphatic Hematologic/Lymphatic: Denies easy bleeding and Denies easy bruising Patient History Medical History Asthma (Acute) Closed nondisplaced fracture of second metatarsal bone of right foot with routine healing (Acute) Depression (Acute) Dermatitis (Acute) Dislocation of tarsometatarsal joint of foot (Acute) Gastrocnemius equinus of right lower extremity (Acute) History of migraine headaches (Acute) History of pancreatitis (Acute) History of depression (Acute) Kidney stones (Acute) 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) Obesity (Acute) Social History household members: spouse and children Smoking Status: Never smoker alcohol intake: current Smoking Status: Never smoker alcohol intake frequency: a few times a month Substance Use Type: does not use Exam Initial Vital Signs Initial Vital Signs: Vital Signs Temperature 97.7 F 04/01/19 20:27 Pulse Rate 101 H 04/01/19 20:27 Respiratory Rate 18 04/01/19 20:27 Blood Pressure 138/81 04/01/19 20:27 Pulse Oximetry 97 04/01/19 20:27 Const General: cooperative, comfortable and well developed Limitations: mental status not altered Resp Effort & Inspection: normal respiratory effort Cardio Rate: regular rate GI Inspection: non-distended Palpation: soft Back/Spine/Pelvis Thoracic/Lumbar Spine: paraspinal tenderness, No thoracic spinal tenderness and No lumbar spinal tenderness Skin Lesions: no lesions Rashes: no rashes Neuro General: alert and awake Extrem General: normal to inspection, capillary refill normal and No edema Course Orders Ordered: Discontinued Medications Ketorolac Tromethamine (Toradol) 30 mg IM NOW ONE Stop: 04/01/19 21:32 Last Admin: 04/01/19 21:56 Dose: 30 mg Documented by: MEISENCarlos Tramadol HCl (Ultram 50mg Prepack) 1 bottle MISC SEEINSTR ONE Stop: 04/01/19 21:32 Last Admin: 04/01/19 21:56 Dose: 1 bottle Documented by: MEISENCarlos Vital Signs Vital signs: Vital Signs - 8 hr 04/01/19 20:27 04/01/19 21:27 Temperature 97.7 F Pulse Rate 101 H 107 H Respiratory Rate 18 21 Blood Pressure 138/81 Blood Pressure [Left Arm] 138/76 Pulse Oximetry 97 99 MDM - Back Pain/Injury MDM Narrative Medical decision making narrative: History and physical consistent with lower back pain with left-sided radiculopathy. No specific trauma. Feel we can hold on any radiologic studies. No red flag symptoms concerning for cauda equina. We will treat symptoms. Patient was given return precautions and follow-up instructions. She expressed understanding and agreement plan. Discharge Plan Departure Patient Disposition: Home Clinical Impression: Acute low back pain Qualifiers: Back pain laterality: left Sciatica presence: with sciatica Sciatica laterality: sciatica of left side Qualified Code(s): M54.42 - Lumbago with sciatica, left side Discharge Date/Time: 04/01/19 22:20 Instructions: DI for Low Back Pain Activity Restrictions/Additional Instructions: Your prescriptions were transmitted electronically to [facility]. Recommend that you continue with the anti-inflammatories like we discussed. I do recommend that you use anti acid medications with them. Contact her primary provider for follow-up. Return to the emergency department for any new or worsening symptoms Prescriptions: New prednisone 20 mg tablet 40 mg PO DAILY 3 Days Qty: 6 RF: 0 cyclobenzaprine 10 mg tablet 10 mg PO TID PRN (Reason: muscle spasm) Qty: 12 RF: 0 tramadol [Ultram] 50 mg tablet 50 mg PO Q6H PRN (Reason: pain) Qty: 10 RF: 0 No Action sertraline [Zoloft] 100 MG tablet 200 mg PO QPM Qty: 0 RF: 0 atenolol 50 MG tablet 50 mg PO QPM Qty: 0 RF: 0 ibuprofen 200 mg Tablet 800 mg PO TID PRN (Reason: pain) RF: 0 metformin 500 mg tablet 500 mg PO BID RF: 0 budesonide 0.5 mg/2 mL suspension for nebulization 0.5 mg inhalation QPM RF: 0 bupropion HCl 300 mg tablet extended release 24 hr 300 mg PO QAM RF: 0 tizanidine 4 mg capsule 4 mg PO TID RF: 0 rizatriptan [Maxalt-PIPING DESIGN SPECIALIST] 10 mg Tablet,Disintegrating 10 mg translingual PRN PRN (Reason: Migraine Headache) RF: 0 lsmbmcdlqz-yhpnynujagaan-wzrm 50-325-40 mg tablet 1 tab PO Q6H PRN (Reason: pain) Qty: 10 RF: 0 ubowannuuj-ugtxpnn-intcvhaq [Fiorinal] 50-325-40 mg capsule 1 cap PO Q6H PRN (Reason: pain) Qty: 10 RF: 0 gabapentin 300 mg Capsule 300 - 600 mg PO BEDTIME RF: 0 acetaminophen [Tylenol Extra Strength] 500 mg Tablet 1,000 mg PO Q6H PRN (Reason: Pain (Scale Score 1-3)) RF: 0 albuterol sulfate 90 mcg/actuation Hfa Aerosol Inhaler 2 puff INHALATION Q4-6H PRN (Reason: Dyspnea) RF: 0 diazepam [Valium] 5 mg tablet 5 mg PO Q8H PRN (Reason: spasms) Qty: 10 RF: 1 ondansetron 4 mg tablet,disintegrating 4 mg PO Q6-8H PRN (Reason: nausea and vomiting) Qty: 10 RF: 0 Referrals: Chu Kaplan DO [Primary Care Provider] - Stand Alone Forms: Work Release Note
[2019-04-01 21:27] VITALS: BP 138/76; PULSE 107; RESP 21; O2SAT 99
[2019-04-01] MEDS: TRAMADOL 50 MG PREPACK 1 BOTTLE MISC (21:56)
[2019-04-01] MEDS: KETOROLAC 60 MG/2 ML VIAL 30 MG IM (21:56)
== END 2019-04-01 22:20 | disposition home or self-care (01) ==
PROVIDERS: Emergency Provider Emergency Medicine; PCP Family Medicine
DX: M54.42 Lumbago with sciatica, left side (principal)
CPT/HCPCS: 96372; 99283; J1885

== ENCOUNTER → 2019-05-05 14:20 | Outpatient (CLI) | payer OTHER, SELFPAY ==
--- NOTE | 2019-05-05 | DI.MRI.S_ITS ---
PROCEDURE: MR LUMBAR SPINE WO CON INDICATIONS: Lumbago with sciatica, left side TECHNIQUE: Noncontrast sagittal T1 spin echo and T2 fast echo, sagittal STIR, axial T1 and T2 fast spin echo through the lumbar spine. In cases with scoliosis, additional coronal T2 fast spin echo may be performed. COMPARISON: [facility] [place], [place], XR LUMBAR SPINE FLEXION EXTENSION, 04/22/2019, 9:48. FINDINGS: Image quality: Excellent. Alignment and Curvature: There is normal bony alignment. Bone Marrow: Marrow is of normal overall signal. No acute vertebral body compression fractures. Spinal Cord: Conus medullaris terminates at the L1-L2 level. Visualized cord demonstrates normal signal and size. Paraspinous Soft Tissues: No paravertebral masses. T12-L1: Normal appearance. L1-L2: Normal appearance. L2-L3: Normal appearance. L3-L4: Minimal disc bulge. Mild facet hypertrophy. No canal stenosis or foraminal stenosis. L4-L5: Mild left posterior lateral disc protrusion. No central canal stenosis. Disc material abuts the left L5 nerve root in the left lateral recess. Bilateral facet hypertrophy. Mild bilateral foraminal narrowing. L5-S1: Facet hypertrophy. No canal stenosis or foraminal stenosis. IMPRESSION: 1. L4-L5, there is a mild left posterior lateral disc protrusion. Disc material abuts the left L5 nerve root in the left lateral recess. Question: Does this patient have a left L5 radiculopathy? 2. Mild multilevel facet hypertrophy. Dictated by: Cortes Bone M.D. on 05/05/2019 at 15:27 Approved by: Cortes Bone M.D. on 05/05/2019 at 15:33
== END ==
PROVIDERS: PCP Family Medicine; Referring Provider Orthopaedic Surgery Orthopaedic Surgery of the Spine; Visit Provider Orthopaedic Surgery Orthopaedic Surgery of the Spine
DX: M51.16 Intervertebral disc disorders with radiculopathy, lumbar region (principal); M48.061 Spinal stenosis, lumbar region without neurogenic claudication
CPT/HCPCS: 72148

== ENCOUNTER 2019-08-15 21:30 | Emergency (ER) | payer OTHER, SELFPAY ==
[2019-08-15 21:30] VITALS: BP 159/82; PULSE 97; RESP 16; TEMP 36.9; O2SAT 97; BMI 35.2
[2019-08-15] MEDS: BACITRACIN OINT 0.9 GM PCKT 1 APPLIC TOP (22:03)
[2019-08-15] MEDS: OXYCODONE/APAP 5/325 PREPACK 1 BOTTLE MISC (22:03)
--- NOTE | 2019-08-16 03:37 | ED.BURNSMOKE ---
HPI - Burn/Smoke Inhalation General Chief complaint: Burn/Smoke Inhalation Stated complaint: states right hand burn Time Seen by Provider: 08/15/19 21:30 Source: patient Mode of arrival: Ambulatory Limitations: no limitations History of Present Illness HPI Narrative: 34F non smoker with a history of HTN and asthma presents with an accidental burn to the base of her fingers on her right hand after grabbing a hot carlin at work. She denies blisters, numbness or tingling. She is otherwise well. This happened tonight, just prior to arrival. Related Data Home Medications Medication Instructions Recorded Confirmed atenolol 50 mg PO QPM #0 03/24/17 02/12/19 sertraline [Zoloft] 200 mg PO QPM #0 03/24/17 02/12/19 gabapentin 300 - 600 mg PO BEDTIME 11/14/17 02/12/19 acetaminophen [Tylenol Extra 1,000 mg PO Q6H PRN 11/21/17 02/12/19 Strength] albuterol sulfate 2 puff INHALATION Q4-6H PRN 11/21/17 02/12/19 ibuprofen 800 mg PO TID PRN 02/18/18 02/12/19 budesonide 0.5 mg INHALATION QPM 02/12/19 02/12/19 bupropion HCl 300 mg PO QAM 02/12/19 02/12/19 metformin 500 mg PO BID 02/12/19 02/12/19 rizatriptan [Maxalt-INSTRUCTION ASSISTANT PRINCIPAL] 10 mg TRANSLINGUAL PRN PRN 02/12/19 02/12/19 tizanidine 4 mg PO TID 02/12/19 02/12/19 Previous Rx's Medication Instructions Recorded diazepam [Valium] 5 mg PO Q8H PRN #10 tab 11/21/17 sxhsvigwkm-nqbskryyksddr-onal 1 tab PO Q6H PRN #10 tab 02/12/19 gnaijrqknv-iiuwyrc-yskrxyhx 1 cap PO Q6H PRN #10 cap 02/12/19 [Fiorinal] ondansetron 4 mg PO Q6-8H PRN #10 tab 02/13/19 cyclobenzaprine 10 mg PO TID PRN #12 tab 04/01/19 tramadol [Ultram] 50 mg PO Q6H PRN #10 tab 04/01/19 Allergies Allergy/AdvReac Type Severity Reaction Status Date / Time adhesive tape Allergy Severe Break out Verified 08/15/19 21:43 really bad erythromycin base Allergy Intermediate ITCHY/HIVES Verified 08/15/19 21:43 [From ERYTHROCIN] prochlorperazine Allergy Intermediate ITCHING Verified 08/15/19 21:43 [From Compazine] hydrocodone [HYDROCODONE] AdvReac Severe VOMITING Verified 08/15/19 21:43 oseltamivir [From TAMIFLU] AdvReac Intermediate DELUSIONS Verified 08/15/19 21:43 Review of Systems Constitutional Constitutional: Denies chills, Denies fatigue, Denies fever(s), Denies frequent falls, Denies lethargy and Denies weakness Eyes Eyes: Denies change in vision, Denies eye discharge, Denies irritation and Denies loss of vision ENT Ears, Nose, Mouth, and Throat: Denies change in voice, Denies dizziness, Denies neck pain, Denies sore throat and Denies throat swelling Cardiovascular Cardiovascular: Denies chest pain, Denies irregular heart rhythm, Denies lightheadedness, Denies palpitations, Denies dyspnea, Denies dyspnea on exertion and Denies orthopnea Respiratory Respiratory: Denies cough, Denies dyspnea, Denies dyspnea on exertion and Denies wheezing Gastrointestinal Gastrointestinal: Denies abdominal pain, Denies change in bowel habits, Denies diarrhea, Denies nausea and Denies vomiting Musculoskeletal Musculoskeletal: Denies neck pain and Denies numbness Integumentary/Breasts Skin/Breast: Denies pruritus, Denies erythema, Denies rash and Denies wounds Comments: burn Neurologic Neurologic: Denies behavioral changes, Denies confusion, Denies dizziness, Denies frequent falls, Denies loss of vision, Denies numbness and Denies weakness Psychiatric Psychiatric: Denies anxiety, Denies behavioral changes, Denies confusion, Denies depression, Denies homicidal ideation and Denies suicidal ideation Endocrine Endocrine: Denies fatigue, Denies flushing and Denies palpitations Hematologic/Lymphatic Hematologic/Lymphatic: Denies easy bruising Allergic/Immunologic Allergic/Immunologic: Denies urticaria, Denies throat swelling and Denies wheezing Patient History Medical History Asthma (Acute) Closed nondisplaced fracture of second metatarsal bone of right foot with routine healing (Acute) Depression (Acute) Dermatitis (Acute) Dislocation of tarsometatarsal joint of foot (Acute) Gastrocnemius equinus of right lower extremity (Acute) History of migraine headaches (Acute) History of pancreatitis (Acute) History of depression (Acute) Kidney stones (Acute) 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 Extraoccular muscles are intact bilaterally. There is no subconjunctival hemorrhage or exudate. CHEST: Lungs are clear to auscultation bilaterally and free of wheezes, rales, or rhonchi. Heart rate is regular rhythm, there are no murmurs, clicks, rubs, or gallops. There is no chest wall tenderness. ABD: Abdomen is soft and nontender. There is no guarding or rebound. Bowel sounds are normal in all 4 quadrants. There is no mass or organomegaly. EXT: Full painless ROM of all extremities with no loss of sensation or strength. SKIN: Minor superficial burn at base of 3rd, 4th fingers of right hand. 1st degree. Very minimal palmar involvement. Not circumferential. Warm, pink, and dry. No erythema or rash Initial Vital Signs Initial Vital Signs: Vital Signs Temperature 98.5 F 08/15/19 21:30 Pulse Rate 97 H 08/15/19 21:30 Respiratory Rate 16 08/15/19 21:30 Blood Pressure 159/82 H 08/15/19 21:30 Pulse Oximetry 97 08/15/19 21:30 Course Orders Ordered: Discontinued Medications Bacitracin (Bacitracin) 1 applic TOP NOW ONE Stop: 08/15/19 21:38 Last Admin: 08/15/19 22:03 Dose: 1 applic Documented by: CASTILLO Oxycodone/Acetaminophen (Endocet 5/325 Prepack) 1 bottle MISC SEEINSTR ONE Stop: 08/15/19 21:42 Last Admin: 08/15/19 22:03 Dose: 1 bottle Documented by: CASTILLO Vital Signs Vital signs: Vital Signs - 8 hr 08/15/19 21:30 Temperature 98.5 F Pulse Rate 97 H Respiratory Rate 16 Blood Pressure 159/82 H Pulse Oximetry 97 Discharge Plan Departure Patient Disposition: Home Clinical Impression: Burn of hand, right Qualifiers: Encounter type: initial encounter Burn of hand location: palm Burn degree: superficial (1st degree) Qualified Code(s): T23.151A - Burn of first degree of right palm, initial encounter Discharge Date/Time: 08/15/19 22:15 Instructions: Aragon Activity Restrictions/Additional Instructions: *You have been diagnosed with [superficial aragon right hand] *What to do: *Take medications as directed *Follow up with your primary care provider in 2-3 days, call for an appointment. Let them know you were seen in the Emergency Department and that we ask that you be seen in follow up *Look up Aragon 306 on Youtube to learn about hand stretches recommended by the [facility] to help maintain range of motion of your hand *Return to ER if you should have any new, worsening or concerning symptoms Prescriptions: No Action sertraline [Zoloft] 100 MG tablet 200 mg PO QPM Qty: 0 RF: 0 atenolol 50 MG tablet 50 mg PO QPM Qty: 0 RF: 0 ibuprofen 200 mg Tablet 800 mg PO TID PRN (Reason: pain) RF: 0 metformin 500 mg tablet 500 mg PO BID RF: 0 budesonide 0.5 mg/2 mL suspension for nebulization 0.5 mg inhalation QPM RF: 0 bupropion HCl 300 mg tablet extended release 24 hr 300 mg PO QAM RF: 0 tizanidine 4 mg capsule 4 mg PO TID RF: 0 rizatriptan [Maxalt-INSTRUCTION ASSISTANT PRINCIPAL] 10 mg Tablet,Disintegrating 10 mg translingual PRN PRN (Reason: Migraine Headache) RF: 0 wdmgfvmvdh-ytkvqfuqdcsrf-irhb 50-325-40 mg tablet 1 tab PO Q6H PRN (Reason: pain) Qty: 10 RF: 0 jaytufrgch-cojhhfj-vbcfmvhe [Fiorinal] 50-325-40 mg capsule 1 cap PO Q6H PRN (Reason: pain) Qty: 10 RF: 0 gabapentin 300 mg Capsule 300 - 600 mg PO BEDTIME RF: 0 acetaminophen [Tylenol Extra Strength] 500 mg Tablet 1,000 mg PO Q6H PRN (Reason: Pain (Scale Score 1-3)) RF: 0 albuterol sulfate 90 mcg/actuation Hfa Aerosol Inhaler 2 puff INHALATION Q4-6H PRN (Reason: Dyspnea) RF: 0 diazepam [Valium] 5 mg tablet 5 mg PO Q8H PRN (Reason: spasms) Qty: 10 RF: 1 ondansetron 4 mg tablet,disintegrating 4 mg PO Q6-8H PRN (Reason: nausea and vomiting) Qty: 10 RF: 0 cyclobenzaprine 10 mg tablet 10 mg PO TID PRN (Reason: muscle spasm) Qty: 12 RF: 0 tramadol [Ultram] 50 mg tablet 50 mg PO Q6H PRN (Reason: pain) Qty: 10 RF: 0 Referrals: Chu Kaplan DO [Primary Care Provider] -
== END 2019-08-15 22:15 | disposition home or self-care (01) ==
PROVIDERS: Emergency Provider Emergency Medicine; PCP Family Medicine
DX: T23.151A Burn of first degree of right palm, initial encounter (principal); X19.XXXA Contact with other heat and hot substances, initial encounter; Y99.0 Civilian activity done for income or pay
CPT/HCPCS: 99281; 99282

== ENCOUNTER 2019-09-12 20:24 | Emergency (ER) | payer OTHER, SELFPAY ==
[2019-09-12 20:29] VITALS: BP 136/95; PULSE 122; RESP 16; TEMP 37.3; O2SAT 97; BMI 38.3
[2019-09-12] MEDS: OXYCODONE/APAP 5/325 PREPACK 1 BOTTLE MISC (22:45)
[2019-09-12] MEDS: OXYCODONE/ACETAMINOPHEN 5/325 TABLET 2 TAB PO (22:45)
[2019-09-12 22:49] VITALS: BP 131/78; PULSE 66; O2SAT 94
--- NOTE | 2019-09-13 03:22 | ED.BURNSMOKE ---
HPI - Burn/Smoke Inhalation General Chief complaint: Burn/Smoke Inhalation Stated complaint: sunburn back of legs, legs swelling, blisters Time Seen by Provider: 09/12/19 22:07 Mode of arrival: Ambulatory History of Present Illness HPI Narrative: 34-year-old woman with a history of depression and migraines [place] not aware of reflected sunlight and suffered severe sunburn to the backs of her legs. The day prior to that she had had moderately severe sunburn on her upper arms that seems to be healing nicely. She also has moderate sunburn over most of her face. She does note that some of medications that she currently takes do make her son sensitive and that her skin is quite light and states that she did apply some sunscreen Related Data Home Medications Medication Instructions Recorded Confirmed atenolol 50 mg PO QPM #0 03/24/17 02/12/19 sertraline [Zoloft] 200 mg PO QPM #0 03/24/17 02/12/19 gabapentin 300 - 600 mg PO BEDTIME 11/14/17 02/12/19 acetaminophen [Tylenol Extra 1,000 mg PO Q6H PRN 11/21/17 02/12/19 Strength] albuterol sulfate 2 puff INHALATION Q4-6H PRN 11/21/17 02/12/19 ibuprofen 800 mg PO TID PRN 02/18/18 02/12/19 budesonide 0.5 mg INHALATION QPM 02/12/19 02/12/19 bupropion HCl 300 mg PO QAM 02/12/19 02/12/19 metformin 500 mg PO BID 02/12/19 02/12/19 rizatriptan [Maxalt-[employer]NER] 10 mg TRANSLINGUAL PRN PRN 02/12/19 02/12/19 tizanidine 4 mg PO TID 02/12/19 02/12/19 Previous Rx's Medication Instructions Recorded diazepam [Valium] 5 mg PO Q8H PRN #10 tab 11/21/17 mfsvnmakwc-vhddfhhgentrt-gmzq 1 tab PO Q6H PRN #10 tab 02/12/19 zvequsyqob-rsajynp-nhicvkgm 1 cap PO Q6H PRN #10 cap 02/12/19 [Fiorinal] ondansetron 4 mg PO Q6-8H PRN #10 tab 02/13/19 cyclobenzaprine 10 mg PO TID PRN #12 tab 04/01/19 tramadol [Ultram] 50 mg PO Q6H PRN #10 tab 04/01/19 diclofenac sodium [Voltaren] 2 gram TOP QID #100 gram 09/12/19 Allergies Allergy/AdvReac Type Severity Reaction Status Date / Time adhesive tape Allergy Severe Break out Verified 08/15/19 21:43 really bad erythromycin base Allergy Intermediate ITCHY/HIVES Verified 08/15/19 21:43 [From ERYTHROCIN] prochlorperazine Allergy Intermediate ITCHING Verified 08/15/19 21:43 [From Compazine] hydrocodone [HYDROCODONE] AdvReac Severe VOMITING Verified 08/15/19 21:43 oseltamivir [From TAMIFLU] AdvReac Intermediate DELUSIONS Verified 08/15/19 21:43 Review of Systems Review of Systems Narrative: Pertinent positive and negative findings as per HPI Remainder of review of systems is otherwise unremarkable for Constitutional: Fevers, chills, weakness ENT: No sore throat, neck pain, ear pain CV: Chest pain, palpitations, dyspnea on exertion Respiratory: Cough, wheeze, dyspnea GI: Nausea, vomiting, diarrhea, change in bowel habits, black or bloody stools : Dysuria, hematuria, flank pain MS: Muscle weakness, numbness, joint swelling or warmth Patient History Medical History Asthma (Acute) Closed nondisplaced fracture of second metatarsal bone of right foot with routine healing (Acute) Depression (Acute) Dermatitis (Acute) Dislocation of tarsometatarsal joint of foot (Acute) Gastrocnemius equinus of right lower extremity (Acute) History of migraine headaches (Acute) History of pancreatitis (Acute) History of depression (Acute) Kidney stones (Acute) 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) Obesity (Acute) Surgical History H/O sinus surgery (Acute) H/O: (Acute) History of cholecystectomy (Acute) History of ERCP (Acute) History of open reduction and internal fixation (ORIF) procedure (Acute) Social History household members: spouse and children Smoking Status: Never smoker alcohol intake: current Smoking Status: Never smoker alcohol intake frequency: a few times a month Substance Use Type: does not use Exam Narrative Exam Narrative: General: Alert appropriate in no acute distress Respiratory: Able to speak in full sentences, no obvious respiratory distress Skin: Severe sunburn the backs of both legs to upper thighs with some blistering in the left popliteal fossa. Moderate sunburn over both arms and the majority of her face Neurologic: Grossly intact no obvious asymmetries or abnormalities Psych, appropriate insight and affect, cooperative Initial Vital Signs Initial Vital Signs: Vital Signs Temperature 99.2 F 09/12/19 20:29 Pulse Rate 122 H 09/12/19 20:29 Respiratory Rate 16 09/12/19 20:29 Blood Pressure 136/95 H 09/12/19 20:29 Pulse Oximetry 97 09/12/19 20:29 Course Orders Ordered: Discontinued Medications Oxycodone/Acetaminophen (Percocet 5/325) 2 tab PO NOW ONE Stop: 09/12/19 22:17 Last Admin: 09/12/19 22:45 Dose: 2 tab Documented by: ANUJ Oxycodone/Acetaminophen (Endocet 5/325 Prepack) 1 bottle MISC SEEINSTR ONE Stop: 09/12/19 22:17 Last Admin: 09/12/19 22:45 Dose: 1 bottle Documented by: ANUJ Vital Signs Vital signs: Vital Signs - 8 hr 09/12/19 20:29 09/12/19 22:49 Temperature 99.2 F Pulse Rate 122 H 66 Respiratory Rate 16 Blood Pressure 136/95 H 131/78 Pulse Oximetry 97 94 MDM - Burn/Smoke Inhalation MDM Narrative Medical decision making narrative: Estimated 10% total body area with severe sunburn with a small patch of blistering 2nd degree burn behind her knees. She is miserable with burning pain an epidermal edema. Help with pain control is given. She is safe for home discharge Discharge Plan Departure Patient Disposition: Home Clinical Impression: Sunburn Discharge Date/Time: 09/12/19 22:53 Instructions: DI for Sunburn Activity Restrictions/Additional Instructions: Thank you for coming in today You have severe sunburn over approximately 10% of your body surface area and second-degree sunburn with the blistering behind the left knee. This will improve over the next couple of days but it is still going to hurt. Using 400 mg of ibuprofen (2 jisl-kqo-dcytobq pills) and 1 Tylenol every 6 hours can be very helpful in controlling pain. For moderate pain you can substitute 1 Percocet for the Tylenol You can try using Voltaren topical gel over the area and see if this helps with the burning sensation. [facility] Avoid putting this on the blistered area as it will sting. You need to invest in stronger sunscreen and make a point of re-applying it much more frequently. Sunburns the severe put you at significant risk for developing skin cancer later in life I hope the pain medication helps, sunburns really are miserable. Prescriptions: New diclofenac sodium [Voltaren] 1 % gel 2 gram TOP QID Qty: 100 RF: 0 No Action sertraline [Zoloft] 100 MG tablet 200 mg PO QPM Qty: 0 RF: 0 atenolol 50 MG tablet 50 mg PO QPM Qty: 0 RF: 0 ibuprofen 200 mg Tablet 800 mg PO TID PRN (Reason: pain) RF: 0 metformin 500 mg tablet 500 mg PO BID RF: 0 budesonide 0.5 mg/2 mL suspension for nebulization 0.5 mg inhalation QPM RF: 0 bupropion HCl 300 mg tablet extended release 24 hr 300 mg PO QAM RF: 0 tizanidine 4 mg capsule 4 mg PO TID RF: 0 rizatriptan [Maxalt-[employer]NER] 10 mg Tablet,Disintegrating 10 mg translingual PRN PRN (Reason: Migraine Headache) RF: 0 oipucpxamw-uezhiiweadxzh-zztm 50-325-40 mg tablet 1 tab PO Q6H PRN (Reason: pain) Qty: 10 RF: 0 wjxwpirrvb-glepomr-qusbrvnp [Fiorinal] 50-325-40 mg capsule 1 cap PO Q6H PRN (Reason: pain) Qty: 10 RF: 0 gabapentin 300 mg Capsule 300 - 600 mg PO BEDTIME RF: 0 acetaminophen [Tylenol Extra Strength] 500 mg Tablet 1,000 mg PO Q6H PRN (Reason: Pain (Scale Score 1-3)) RF: 0 albuterol sulfate 90 mcg/actuation Hfa Aerosol Inhaler 2 puff INHALATION Q4-6H PRN (Reason: Dyspnea) RF: 0 diazepam [Valium] 5 mg tablet 5 mg PO Q8H PRN (Reason: spasms) Qty: 10 RF: 1 ondansetron 4 mg tablet,disintegrating 4 mg PO Q6-8H PRN (Reason: nausea and vomiting) Qty: 10 RF: 0 cyclobenzaprine 10 mg tablet 10 mg PO TID PRN (Reason: muscle spasm) Qty: 12 RF: 0 tramadol [Ultram] 50 mg tablet 50 mg PO Q6H PRN (Reason: pain) Qty: 10 RF: 0 Referrals: Chu Kaplan DO [Primary Care Provider] -
== END 2019-09-12 22:53 | disposition home or self-care (01) ==
PROVIDERS: Emergency Provider Emergency Medicine; PCP Family Medicine
DX: L55.1 Sunburn of second degree (principal)
CPT/HCPCS: 99282; 99283

== ENCOUNTER → 2019-10-24 15:03 | Outpatient (CLI) | payer OTHER, SELFPAY ==
[2019-10-25 22:54] LABS: COVID19 Sendout Not Detected (Not Detected)
== END ==
PROVIDERS: PCP Family Medicine; Visit Provider Physician Assistant
DX: R05 Cough (principal); R50.9 Fever, unspecified; Z11.59 Encounter for screening for other viral diseases
CPT/HCPCS: 87635